=== PATIENT | female | born 1990 | race Caucasian/White ===

== ENCOUNTER 2017-04-30 15:58 | Emergency (ER) | payer MEDICAID ==
[2017-04-30 16:18] VITALS: BP 118/85
[2017-04-30] MEDS ORDERED: Sodium Chloride 0.9% 10 ML Syringe FLUSH PRN (17:06)
[2017-04-30] MEDS ORDERED: Sodium Chloride 0.9% 1,000 ML IV ONE (17:06)
[2017-04-30] MEDS ORDERED: diphenhydrAMINE 50 MG/ML SDV IVPUSH ONE (17:06)
[2017-04-30] MEDS ORDERED: Acetaminophen 650 MG Supp RECTAL ONE (17:06)
[2017-04-30] MEDS ORDERED: Ondansetron 4 MG/2 ML SDV IVPUSH ONE (17:06)
--- NOTE | 2017-04-30 17:12 | EDM.PDOC ---
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 States it is a possibility she may be . Last menstrual cycle was Mar 26. Patient's late. She is sexually active and is currently not utilizing control. All the symptoms she is currently experiencing are concerning for morning sickness. States this morning upon awakening she was nauseated and so started to vomit at approximate 9:00 after trying to eat something prior. Nausea/vomiting has persisted throughout the course the day. States the generalized headache started with vomiting. Headache is mild to moderate intensity. Generalized. She has no vision changes, no n/t to extremities, focal neurological deficits, recent head trauma, stiff neck, or fever. She does have history of migraines and states this is nothing like a migraine. Denies any recent sick exposures or upper respiratory infections. Patient has a history of ADHD and migraines Current medications include Adderall and sumatriptan. She has not taken any of these medications for short period of time. Patient does not smoke or utilize alcohol or recreational drugs. Patient's PCP is Dr. Dumont. 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 ED EXAM, GI/ABD - Physical Exam Exam: See Below Exam Limited By: No Limitations General Appearance: Alert, WD/WN, Mild Distress Eyes: Bilateral: Normal Appearance, EOMI Ears: Hearing Grossly Normal Nose: Normal Inspection Throat/Mouth: Normal Inspection, Normal Oropharynx, Normal Voice, No Airway Compromise Head: Atraumatic, Normocephalic Neck: Normal Inspection, Supple, Non-Tender, Full Range of Motion. No: Lymphadenopathy (L), Lymphadenopathy (R) Respiratory/Chest: No Respiratory Distress, Lungs Clear, Normal Breath Sounds, No Accessory Muscle Use, Chest Non-Tender Cardiovascular: Normal Peripheral Pulses, Regular Rate, Rhythm GI/Abdominal Exam: Normal Bowel Sounds, Soft, Non-Tender, No Organomegaly, No Distention Back Exam: Normal Inspection. No: CVA Tenderness (L), CVA Tenderness (R) Neurological: Alert, Oriented, Normal Cognition, No Motor/Sensory Deficits Psychiatric: Normal Affect, Normal Mood Skin Exam: Warm, Dry, Intact, Normal Color, No Rash Course - Vital Signs Last Recorded V/S: Last Vital Signs Temp 97.2 F 04/30/17 16:15 Pulse 78 04/30/17 16:15 Resp 20 04/30/17 16:15 BP 118/85 04/30/17 16:15 Pulse Ox 100 04/30/17 16:15 - Orders/Labs/Meds Orders: Active Orders 24 hr Category Date Time Status Peripheral IV Care [RC] . DIRECTED Care 04/30/17 17:06 Active Peripheral IV Insertion Adult [OM.PC] Stat Oth 04/30/17 17:06 Ordered Labs: Laboratory Tests 04/30/17 04/30/17 04/30/17 Range/Units 17:20 17:20 17:20 WBC 11.10 H (3.98-10.04) K/mm3 RBC 4.61 (3.98-5.22) M/mm3 Hgb 13.6 (11.2-15.7) gm/L Hct 39.2 (34.1-44.9) % MCV 85.0 (79.4-94.8) fl MCH 29.5 (25.6-32.2) pg MCHC 34.7 (32.2-35.5) g/dl RDW Std Deviation 39.0 (36.4-46.3) fL Plt Count 315 (182-369) K/mm3 MPV 10.1 (9.4-12.3) fl Neut % (Auto) 92.0 H (34.0-71.1) % Lymph % (Auto) 5.5 L (19.3-51.7) % [place] % (Auto) 1.9 L (4.7-12.5) % Eos % (Auto) 0.2 L (0.7-5.8) Baso % (Auto) 0.3 (0.1-1.2) % Neut # (Auto) 10.22 H (1.56-6.13) K/mm3 Lymph # (Auto) 0.61 L (1.18-3.74) K/mm3 [place] # (Auto) 0.21 L (0.24-0.36) K/mm3 Eos # (Auto) 0.02 L (0.04-0.36) K/mm3 Baso # (Auto) 0.03 (0.01-0.08) K/mm3 Manual Slide Review Abnormal smear Sodium 141 (136-145) mEq/L Potassium 3.7 (3.5-5.1) mEq/L Chloride 104 (98-107) mEq/L Carbon Dioxide 26 (21-32) mEq/L Anion Gap 14.7 (5-15) BUN 8 (7-18) mg/dL Creatinine 0.6 (0.55-1.02) mg/dL Est Cr Clr Drug Dosing 114.44 mL/min Estimated GFR (MDRD) > 60 (>60) mL/min BUN/Creatinine Ratio 13.3 L (14-18) Glucose 110 H (74-106) mg/dL Calcium 9.5 (8.5-10.1) mg/dL Total Bilirubin 0.9 (0.2-1.0) mg/dL AST 27 (15-37) U/L ALT 39 (14-59) U/L Alkaline Phosphatase 58 (46-116) U/L Total Protein 8.7 H (6.4-8.2) g/dl Albumin 4.7 (3.4-5.0) g/dl Globulin 4.0 gm/dL Albumin/Globulin Ratio 1.2 (1-2) TSH 3rd Generation 0.835 (0.358-3.74) uIU/mL HCG, Qual Positive H (NEGATIVE) HCG, Quant mIU/mL Blood Type 04/30/17 04/30/17 Range/Units 17:20 17:20 WBC (3.98-10.04) K/mm3 RBC (3.98-5.22) M/mm3 Hgb (11.2-15.7) gm/L Hct (34.1-44.9) % MCV (79.4-94.8) fl MCH (25.6-32.2) pg MCHC (32.2-35.5) g/dl RDW Std Deviation (36.4-46.3) fL Plt Count (182-369) K/mm3 MPV (9.4-12.3) fl Neut % (Auto) (34.0-71.1) % Lymph % (Auto) (19.3-51.7) % [place] % (Auto) (4.7-12.5) % Eos % (Auto) (0.7-5.8) Baso % (Auto) (0.1-1.2) % Neut # (Auto) (1.56-6.13) K/mm3 Lymph # (Auto) (1.18-3.74) K/mm3 [place] # (Auto) (0.24-0.36) K/mm3 Eos # (Auto) (0.04-0.36) K/mm3 Baso # (Auto) (0.01-0.08) K/mm3 Manual Slide Review Sodium (136-145) mEq/L Potassium (3.5-5.1) mEq/L Chloride (98-107) mEq/L Carbon Dioxide (21-32) mEq/L Anion Gap (5-15) BUN (7-18) mg/dL Creatinine (0.55-1.02) mg/dL Est Cr Clr Drug Dosing mL/min Estimated GFR (MDRD) (>60) mL/min BUN/Creatinine Ratio (14-18) Glucose (74-106) mg/dL Calcium (8.5-10.1) mg/dL Total Bilirubin (0.2-1.0) mg/dL AST (15-37) U/L ALT (14-59) U/L Alkaline Phosphatase (46-116) U/L Total Protein (6.4-8.2) g/dl Albumin (3.4-5.0) g/dl Globulin gm/dL Albumin/Globulin Ratio (1-2) TSH 3rd Generation (0.358-3.74) uIU/mL HCG, Qual (NEGATIVE) HCG, Quant 8.0 mIU/mL Blood Type A POSITIVE Meds: Medications Discontinued Medications Generic Name Dose Route Start Last Admin Trade Name Freq PRN Reason Stop Dose Admin Acetaminophen 650 mg 04/30/17 17:06 04/30/17 17:47 Tylenol RECTAL 04/30/17 17:07 650 mg NOW ONE Administration Diphenhydramine HCl 50 mg 04/30/17 17:06 04/30/17 17:42 Benadryl IVPUSH 04/30/17 17:07 50 mg ONETIME ONE Administration Sodium Chloride 1,000 mls @ 999 mls/hr 04/30/17 17:06 04/30/17 17:42 Normal Saline IV 04/30/17 18:06 999 mls/hr ONETIME ONE Administration Ondansetron HCl 4 mg 04/30/17 17:06 04/30/17 17:40 Zofran IVPUSH 04/30/17 17:07 4 mg ONETIME ONE Administration Sodium Chloride 10 ml 04/30/17 17:06 04/30/17 17:43 Saline Flush FLUSH 10 ml ASDIRECTED PRN Administration Keep Vein Open - Re-Assessments/Exams Free Text/Narrative Re-Assessment/Exam: IV will be established with normal saline, Zofran 4 mg IVP, and Benadryl 50 mg IVP. In addition for pain patient administered Tylenol 650 mg rectally. Initial labs and studies include CBC, chem 14, urine drug tox, hCG qualitative/ quanitatitve, abo/rh type, TSH, and UA. Labs reviewed: White blood cell count 11.10, hemoglobin 13.6, neutrophil percent is 92, neutrophil number is 10.2 to, sodium 141, potassium 3.7, AG 14.7 , creatinine 0.6, glucose 110, TSH 0.835, hCG was positive. Quantitative was 8.0. Shared results of the above labs with the patient. Offered to do perform a vaginal exam and evaluate to see if the cervical os is open. 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 In addition I asked the patient to inform us with tampon change how saturated was. Per nursing it was very saturated. Patient is A positive. Patient has no pain or nausea. Dizziness has subsided with the IV fluids. Vital signs are stable. Will discharge patient home with instructions as documented. Departure - Departure Time of Disposition: 20:04 Disposition: Home, Self-Care 01 Condition: Good Clinical Impression: Vaginal bleeding before 22 weeks gestation Nausea & vomiting Qualifiers: Vomiting type: unspecified Vomiting Intractability: non-intractable Qualified Code(s): R11.2 - Nausea with vomiting, unspecified - Discharge Information Prescriptions: Ondansetron [Zofran ODT] 4 mg PO Q6H PRN #10 tab.dis PRN Reason: Nausea/Vomiting Instructions: Nausea, Adult, Vaginal Bleeding During , First Trimester , Vaginal Bleeding During , Second Trimester, [id number] Referrals: Bonifacio Brunson MD [Primary Care Provider] - Forms: ED Department Discharge Additional Instructions: As discussed labs did indicate you are . Suggest you are early on in your with a hCG quantitative of 8. Take the Zofran as needed for nausea vomiting as prescribed. Push the fluids. Utilize Tylenol for any discomfort. Return to ED if he developed worsening bleeding or develop any pain. Otherwise follow-up with your [employer] SWEE[employer] OPERATOR specialist this coming Wednesday or Wednesday for reevaluation. - My Orders Last 24 Hours: My Active Orders 04/30/17 17:06 Peripheral IV Care [RC] . DIRECTED Peripheral IV Insertion Adult [OM.PC] Stat - Assessment/Plan Last 24 Hours: My Active Orders 04/30/17 17:06 Peripheral IV Care [RC] . DIRECTED Peripheral IV Insertion Adult [OM.PC] Stat
== END 2017-04-30 20:20 | disposition home or self-care (01) ==
LOC: JD.ED 15:58
DX: O20.9 Hemorrhage in early pregnancy, unspecified (principal); O21.9 Vomiting of pregnancy, unspecified; Z88.1 Allergy status to other antibiotic agents; Z88.2 Allergy status to sulfonamides
CPT/HCPCS: 36415; 80053; 84443; 84702; 84703; 85025; 86900; 86901; 96361; 96374; 96375; 99284; A9270; J1200; J2405; J7040; J7050

== ENCOUNTER 2017-08-31 21:24 | Emergency (ER) | payer MEDICAID ==
[2017-08-31 21:43] VITALS: BP 117/81
[2017-08-31] MEDS: Sodium Chloride 0.9% 1,000 ML IV ONE (22:53)
--- NOTE | 2017-08-31 22:54 | EDM.PDOC ---
ED HPI GENERAL MEDICAL PROBLEM - General Chief Complaint: Headache Stated Complaint: HEADACHE Time Seen by Provider: 08/31/17 22:28 Source of Information: Reports: Patient History Limitations: Reports: No Limitations - History of Present Illness INITIAL COMMENTS - FREE TEXT/NARRATIVE: The patient states that she has had a headache that involves the entire left side of her head, since this afternoon. It is constant. She is unable to describe its character. She has had nausea and slight emesis. She has both photophobia and phonophobia, but no visual changes. No neuro symptoms, such as tingling, numbness, or weakness. Her symptoms are similar to prior migraines that she has had. She has previously taken Imitrex for her migraines, but is currently 8 weeks gestation. She took 50 mg Benadryl around 16:00, without significant improvement. The last imaging study of the patient's head was on 08/12/2015, according to our records. The patient's PCP is Dr. Brunson. Headache Pain Score (Numeric/FACES): 10 - Related Data Allergies Allergy/AdvReac Type Severity Reaction Status Date / Time doxycycline Allergy Cannot Verified 08/31/17 21:43 Remember Sulfa (Sulfonamide Allergy Cannot Verified 08/31/17 21:43 Antibiotics) Remember Home Meds: Home Meds . 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: Neurological History: Reports: Migraines Psychiatric History: Reports: ADHD - Infectious Disease History Infectious Disease History: Reports: Chicken Pox - Past Surgical History Musculoskeletal Surgical History: Reports: Other (See Below) Other Musculoskeletal Surgeries/Procedures:: ankle surgery Social & Family History - Tobacco Use Smoking Status *Q: Never Smoker Second Hand Smoke Exposure: No - Caffeine Use Caffeine Use: Reports: None - Alcohol Use Alcohol Use History: No - Recreational Drug Use Recreational Drug Use: No - Living Situation & Occupation Living situation: Reports: Single, with Family (Daughter) 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 - Physical Exam Exam: See Below Exam Limited By: No Limitations General Appearance: Alert, WD/WN, Mild Distress (Appears uncomfortable) Eye Exam: Bilateral Eye: EOMI, Normal Inspection, PERRL Ears: Normal External Exam, Hearing Grossly Normal Nose: Normal Inspection, No Blood Throat/Mouth: Normal Inspection, Normal Lips, Normal Voice, No Airway Compromise Head Exam: Atraumatic, Normocephalic Neck: Normal Inspection, Full Range of Motion Respiratory/Chest: No Respiratory Distress, Lungs Clear, Normal Breath Sounds, No Accessory Muscle Use Cardiovascular: Normal Peripheral Pulses, Regular Rate, Rhythm, No Gallop, No JVD, No Murmur, No Rub GI/Abdominal: Normal Bowel Sounds, Soft, Non-Tender, No Organomegaly, No Distention, No Abnormal Bruit, No Mass (Female) Exam: Deferred Rectal (Female) Exam: Deferred Neuro Exam (Abbreviated): Alert, Oriented, CN II-XII Intact, Normal Cognition, No Motor/Sensory Deficits Back Exam: Normal Inspection, Full Range of Motion, NT Extremities: Normal Inspection, Normal Range of Motion, No Pedal Edema, Normal Capillary Refill Psychiatric: Normal Affect Skin Exam: Warm, Dry, Intact, Normal Color, No Rash Course - Vital Signs Last Recorded V/S: Last Vital Signs Temp 35.5 C 08/31/17 21:39 Pulse 84 08/31/17 21:39 Resp 16 08/31/17 21:39 BP 117/81 08/31/17 21:39 Pulse Ox 100 08/31/17 21:39 - Orders/Labs/Meds Meds: Medications Discontinued Medications Generic Name Dose Route Start Last Admin Trade Name Freq PRN Reason Stop Dose Admin Sodium Chloride 1,000 mls @ 999 mls/hr 08/31/17 22:41 08/31/17 22:53 Normal Saline IV 08/31/17 23:41 999 mls/hr ONETIME ONE Administration Metoclopramide HCl 10 mg 08/31/17 22:51 08/31/17 23:00 Reglan IVPUSH 08/31/17 22:52 10 mg ONETIME STA Administration Metoclopramide HCl 10 mg 08/31/17 23:31 08/31/17 23:43 Reglan IVPUSH 08/31/17 23:32 10 mg ONETIME STA Administration Ondansetron HCl 4 mg 08/31/17 22:41 08/31/17 22:55 Zofran IVPUSH 08/31/17 22:42 4 mg ONETIME ONE Administration - Re-Assessments/Exams Free Text/Narrative Re-Assessment/Exam: 08/31/17 22:56 As the patient is 8 weeks gestation, our treatment options are limited. Haldol and sumatriptan are category C. NSAIDs and Thorazine are not recommended while . Compazine is probably okay, but Reglan is category B. I have ordered IV fluid, IV Zofran, and 10 mg IV Reglan. She could receive a second dose of Reglan 10 mg, if needed. Because the last imaging study of her head was 2 years ago, current guidelines recommend a repeat CT scan. Radiology informs me that with shielding, the amount of radiation that she would receive to her abdomen would be less then that received from a portal chest radiograph. 08/31/17 23:32 The patient reports no improvement in her headache 30 minutes after receiving Reglan 10 mg. I have ordered an additional Reglan 10 mg. 09/01/17 00:30 CT of the head without contrast is read by [facility] as "Normal head/ brain CT." 09/01/17 00:31 The patient states that her headache has improved somewhat, and is now tolerable. I will discharge her home. Departure - Departure Time of Disposition: 00:31 Disposition: Home, Self-Care 01 Condition: Fair Clinical Impression: Migraine headache without aura, - Discharge Information Instructions: Migraine Headache, [id number] Referrals: Paige Kenny [Primary Care Provider] - Forms: ED Department Discharge Additional Instructions: You were seen in the emergency room for a left-sided migraine headache. Workup in the ER included a CT scan of her head, which was normal. You received some improvement in your symptoms following IV Reglan. Get plenty of rest tonight in a dark, quiet place. Stay well hydrated. Follow-up with your PCP, Dr. Brunson, and your Clinical Rehabilitation Liaison, Dr. Kenny, as needed. If any other problems, please do not hesitate to return to the ER.
[2017-08-31] MEDS: Ondansetron 4 MG/2 ML SDV IVPUSH ONE (22:55)
[2017-08-31] MEDS: Metoclopramide 10 MG/2 ML SDV IVPUSH STA ×2 (23:00→23:43)
--- NOTE | 2017-09-01 08:48 | CT ---
Head CT Technique: Multiple axial sections through the brain were obtained. Intravenous contrast was not utilized. Comparison: Prior head CT study of 08/12/15. Findings: Ventricles along with basal cisterns and sulci over the convexities are within normal limits for the patient's age. No abnormal parenchymal densities are seen. No evidence of intracranial hemorrhage. No midline shift or mass effect is seen. Visualized sinuses are clear. No acute calvarial abnormality is seen. Impression: 1. Nothing acute seen on noncontrast head CT study. No significant change is seen from previous study. Diagnostic code #1 Agree with preliminary report issued by [facility] ([facility] preliminary report dictated on 09/01/17, 1:17 AM Central Time)
== END 2017-09-01 01:00 | disposition home or self-care (01) ==
LOC: JD.ED 21:24
DX: O99.351 Diseases of the nervous system complicating pregnancy, first trimester (principal); G43.009 Migraine without aura, not intractable, without status migrainosus; Z88.1 Allergy status to other antibiotic agents; Z88.2 Allergy status to sulfonamides; Z3A.08 8 weeks gestation of pregnancy
CPT/HCPCS: 70450; 96361; 96374; 96375; 96376; 99284; J2405; J2765; J7040

== ENCOUNTER 2018-02-19 22:18 | Emergency (ER) | payer MEDICAID ==
[2018-02-19 22:45] VITALS: BP 124/93
--- NOTE | 2018-02-20 00:09 | EDM.PDOC ---
ED HPI GENERAL MEDICAL PROBLEM - General Chief Complaint: Neck Problem Stated Complaint: 33 WKS PG FELL AND HIT HEAD ON THE FLOOR Time Seen by Provider: 02/20/18 00:05 Source of Information: Reports: Patient History Limitations: Reports: No Limitations - History of Present Illness INITIAL COMMENTS - FREE TEXT/NARRATIVE: 27-year-old female who is 33 weeks gestation and do April 08 presents to the ED after slipping and falling after stepping out of the shower in her own home tonight. States her feet went out from underneath her and she fell hard to the floor banging the back of her head on the floor as well as her neck and upper back. She states she doesn't believe she lost consciousness but was confused and dazed for a period of time. She reports she started looking over all over the house for her phone when it was actually in her hand. She does have a headache at present with mild nausea. She states she banged her elbows on the floor but has no open lacerations and full range of motion. She was placed in a cervical collar by nursing staff prior to my assessment. Injuries occurred approximately 1815 hrs. today. Onset: Today Onset Date: 02/19/18 Onset Time: 18:15 Duration: Hour(s): Location: Reports: Head, Neck, Back, Upper Extremity, Left (Elbow), Upper Extremity, Right Quality: Reports: Ache Severity: Moderate Improves with: Reports: Rest Worsens with: Reports: Movement Context: Reports: Trauma (Slipped and fell getting out of the shower.). Denies : Activity, Exercise, Lifting, Sick Contact Associated Symptoms: Reports: Confusion, Headaches, Nausea/Vomiting. Denies: Chest Pain, Cough (Transient temporary confusion which seems to resolve.), cough w sputum, Diaphoresis (Mild headache), Fever/Chills, Loss of Appetite, Malaise, Rash, Seizure (Mild nausea), Shortness of Breath, Syncope Treatments CARDIAC TECHNICIAN: Reports: Acetaminophen Mid-Posterior Neck Pain Score (Numeric/FACES): 6 - Related Data Allergies Allergy/AdvReac Type Severity Reaction Status Date / Time doxycycline Allergy Cannot Verified 02/19/18 22:38 Remember Sulfa (Sulfonamide Allergy Cannot Verified 02/19/18 22:38 Antibiotics) Remember Home Meds: Home Meds . 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 She reports she required vaginal packing. Delivery was in [place].) LMP (Approximate): Other (See Below) (Current EDC is April 08, 2018) Neurological History: Reports: Migraines Psychiatric History: Reports: ADHD - Infectious Disease History Infectious Disease History: Reports: Chicken Pox - Past Surgical History Musculoskeletal Surgical History: Reports: Other (See Below) Other Musculoskeletal Surgeries/Procedures:: ankle surgery Social & Family History - Family History Family Medical History: Noncontributory - Tobacco Use Smoking Status *Q: Never Smoker Second Hand Smoke Exposure: No - Caffeine Use Caffeine Use: Reports: Soda - Recreational Drug Use Recreational Drug Use: No - Living Situation & Occupation Living situation: Reports: Single, with Family (Daughter) 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 Denies: Fever, Chills, Weight Loss HEENT: Reports: Other. Denies: Dental Pain, Ear Discharge, Ear Pain, Eye Discharge, Glasses, Hearing Loss, Nosebleed, Nose Pain, Rhinitis Respiratory: Reports: No Symptoms (Has problems chronically with her temporomandibular joints. They're perhaps a little worse and she fell) Cardiovascular: Reports: No Symptoms Endocrine: Reports: Fatigue GI/Abdominal: Denies: Abdominal Pain, Anorexia, Black Stool, Bloody Stool, Diarrhea, Decreased Appetite, Difficulty Swallowing, Distension, Flatus, Hematemesis, Hematochezia, Melena : Reports: Frequency, Other (Patient is 33 weeks gestation. EDC is April 08, 2018) Musculoskeletal: Reports: Back Pain Skin: Reports: No Symptoms Neurological: Reports: Confusion (Transient confusion after she fell suggesting possibility of mild concussion), Headache. Denies: Paresthesia, Pre-Existing Deficit, Seizure, Syncope, Tingling, Trouble Speaking, Difficulty Walking, Weakness, Change in Speech, Gait Disturbance Psychiatric: Reports: Anxiety Hematologic/Lymphatic: Reports: No Symptoms Immunologic: Reports: No Symptoms ED EXAM, UPPER BACK/NECK PAIN - Physical Exam Exam: See Below Exam Limited By: No Limitations General Appearance: Alert, WD/WN, Anxious, Mild Distress Eye Exam: Bilateral Eye: Normal Fundi, Normal Inspection, PERRL Throat/Mouth Exam: Normal Lips, Normal Teeth, Normal Oropharynx, Other (No dental or tongue injury.) Neck Exam: Normal Alignment, Normal Inspection, Other (Collar removed for examination and she had normal alignment of her cervical spine with no well localized tenderness. There is no paraspinal muscle spasm 5 hours after the injury.). No: Full Range of Motion Nexus Criteria: Posterior, Midline Cervical Tenderness ( Collar was left off.). No: Evidence of Intoxication, Altered Level of Consciousness, Focal Neurological Deficit (Very mild), Painful Distraction Injuries Cardiovascular/Respiratory: Regular Rate, Rhythm, No M/R/G, Normal Peripheral Pulses, No JVD, Normal Breath Sounds, No Respiratory Distress GI/Abdominal: Normal Bowel Sounds, Soft, Non-Tender, No Organomegaly, Other ( Gravid uterus corresponding to 33 weeks gestation. Good heart tones are appreciated.) Back Exam: Normal Inspection, Full Range of Motion, Other Extremities: Normal Inspection (She has some tenderness of the upper thoracic spine without contusions or abrasions identified on examination alignment of the spinous processes was normal.), Normal Range of Motion, Other (Tenderness both olecranon processes of the elbow without abrasions or obvious fracture or injury.) Neurologic: ball point splitter II-XII nml As Tested, No Motor/Sensory Deficits, Alert, Oriented x 3, Other Psychiatric: Flat Affect Skin Exam: Normal Color, Warm/Dry Course - Vital Signs Last Recorded V/S: Last Vital Signs Temp 37.6 C 02/19/18 22:38 Pulse 105 H 02/19/18 22:38 Resp 18 02/19/18 22:38 BP 124/93 H 02/19/18 22:38 Pulse Ox 98 02/19/18 22:38 - Orders/Labs/Meds Orders: Active Orders 24 hr Category Date Time Status Cervical Spine wo Cont [CT] Stat Exams 02/20/18 00:07 Ordered Chest 2V [CR] Stat Exams 02/20/18 00:08 Taken Head wo Cont [CT] Stat Exams 02/20/18 00:06 Taken Meds: Medications Discontinued Medications Generic Name Dose Route Start Last Admin Trade Name Freq PRN Reason Stop Dose Admin Acetaminophen 650 mg 02/20/18 01:23 02/20/18 01:29 Tylenol PO 02/20/18 01:24 650 mg NOW ONE Administration Ondansetron HCl 4 mg 02/20/18 01:23 02/20/18 01:30 Zofran Odt PO 02/20/18 01:24 4 mg ONETIME ONE Administration - Radiology Interpretation Free Text/Narrative:: 27-year-old female who is 33 weeks reports to the ED after slipping and falling getting out of her shower this evening. She states she slipped and feet went out from underneath her and she fell hard on the back of her head . Was dazed but did not lose consciousness. Since she's developed a headache with nausea without vomiting. She has diffuse cervical neck pain and some pain in her upper thoracic spine as well. Denies any rib pain. She banged her elbows on the floor and they're tender to touch over the olecranon processes but no signs of fractures with full range of motion. No injuries to the fetus-- good heart tones appreciated and uterus corresponds to a 33 week gestation. No injuries to her hips or knees or lower extremities. Back shows no signs of contusions or abrasions. Some tenderness over the upper thoracic spinous processes T1-T4. Plan CT head CT cervical spine 2 view chest x-ray with lead apron over the fetus. - Re-Assessments/Exams Free Text/Narrative Re-Assessment/Exam: 02/20/18 01:03 CT cervical spine is within normal limits although she is showing some early signs of anterior lipping at C5-6 and 7 level. No fractures are evident. Alignment is normal. CT head reveals no skull fractures no intracranial bleeding or mass effect. There is no significant hematoma of the scalp identified. Two-view chest x-ray carried out and ribs appear to be intact. Lungs are clear visualized portions of the thoracic spine do not show any compression fractures or deformities of the spinous processes. Patient reassured that no serious injuries have occurred although she is to expect increased cervical neck pain over the next 2 days due to cervical neck ligaments strain. Recommended have intermittent headache and by history she may well of suffered a mild concussion. She will be taking life easy for the next week at any rate with no vigorous exercise program etc. Given Zofran 4 mg sublingually and Tylenol 650 mg by mouth for headache and nausea relief. Will be following up with RN SECURITY next week. Departure - Departure Time of Disposition: 01:13 Disposition: Home, Self-Care 01 Condition: Fair Clinical Impression: Minor closed head injury Fall as cause of accidental injury at home as place of occurrence Qualifiers: Encounter type: initial encounter Qualified Code(s): W19.XXXA - Unspecified fall, initial encounter Sprain of cervical neck Qualifiers: Encounter type: initial encounter Qualified Code(s): S13.9XXA - Sprain of joints and ligaments of unspecified parts of neck, initial encounter Contusion of back wall of thorax Qualifiers: Encounter type: initial encounter Laterality: unspecified laterality Qualified Code(s): S20.229A - Contusion of unspecified back wall of thorax, initial encounter - Discharge Information *PRESCRIPTION DRUG MONITORING PROGRAM REVIEWED*: Not Applicable *COPY OF PRESCRIPTION DRUG MONITORING REPORT IN PATIENT LUCAS: Not Applicable Instructions: Cervical Sprain, Head Injury, Adult, [id number] Referrals: Nga Kenny MD [Primary Care Provider] - Forms: ED Department Discharge Additional Instructions: Evaluation the emergency room tonight in regards to a slip and fall at home after getting out of the shower last evening. He landed hard on the floor with the back of your head and subsequently suffered a headache with pain throughout your upper neck and upper back. She was identified to your shoulders or elbows or wrists or lower extremities. CT scan of your brain reveals no abnormalities such as bleeding or mass effect and certainly no evidence of skull fracture. Similarly CT of the cervical spine reveals no abnormalities or fractures. X- rays of the upper back bones and chest and ribs revealed no broken bones either. You therefore suffered a mild closed head injury with contusion to your scalp and possible mild concussion. Account for why you seemed to be confused disoriented for a period of time particular as to the whereabouts of your phone as you indicated. Expect her neck to become much more stiff and sore over the next 24-48 hours if he strained the ligaments in the upper neck muscles. Suggest ice pack to the area for one half hour out of every 4 hours for the first 2 days and after this may use heat to the area. May only use Tylenol during for pain relief. Similar he may have increased upper back pain from fall to the floor like it deep bruise. Expect to return back to normal over the next 7-10 days. Just no vigorous activities that would increase your blood pressure over the next week as an exercise program etc. Brain rest is important at this point time due to possibility of a mild concussion. Follow-up with your personal care physician/scratcher tender as planned. - My Orders Last 24 Hours: My Active Orders 02/20/18 00:06 Head wo Cont [CT] Stat 02/20/18 00:07 Cervical Spine wo Cont [CT] Stat 02/20/18 00:08 Chest 2V [CR] Stat - Assessment/Plan Last 24 Hours: My Active Orders 02/20/18 00:06 Head wo Cont [CT] Stat 02/20/18 00:07 Cervical Spine wo Cont [CT] Stat 02/20/18 00:08 Chest 2V [CR] Stat
[2018-02-20] MEDS ORDERED: Acetaminophen 325 MG Tab PO ONE (01:23)
[2018-02-20] MEDS ORDERED: Ondansetron 4 MG Tab.DIS PO ONE (01:23)
--- NOTE | 2018-02-22 13:16 | CR ---
Chest: 2 views of the chest were obtained. Comparison: No prior chest x-ray. Heart size appears at the upper limits of normal. Right-sided paratracheal soft tissues are slightly prominent. Lungs are clear. Bony structures are grossly intact. Impression: 1. Slight widening of the superior right paratracheal soft tissues. Heart size at the upper limits of normal. Recommend contrast enhanced chest CT to further evaluate the mediastinal findings. Diagnostic code #9
--- NOTE | 2018-02-23 06:52 | CT ---
CT cervical spine Technique: Multiple axial sections were obtained from above C1 inferiorly to the bottom of T2. Reconstructed sagittal and coronal images were reviewed. Findings: Mild disc space narrowing noted at C5-C6 with posterior spurring. Other disc spaces are maintained. Vertebral body heights are maintained. Kyphosis is present within the cervical spine. No discrete fracture or subluxation is seen. No bony central or bony neural foraminal stenosis is seen. Impression: 1. Kyphosis within the cervical spine either positional or due to muscle spasm. 2. Mild degenerative change at C5-C6. 3. Nothing acute is seen on CT study of the cervical spine. Diagnostic code #2 I agree with preliminary report from [facility], finalized at 02/20/18, 2:32 AM Central Time
--- NOTE | 2018-02-23 06:52 | CT ---
Head CT Technique: Multiple axial sections through the brain were obtained. Intravenous contrast was not utilized. Comparison: No prior intracranial imaging. Findings: Ventricles along with basal cisterns and sulci over the convexities are within normal limits for the patient's age. No abnormal parenchymal densities are seen. No evidence of intracranial hemorrhage. No midline shift or mass effect is seen. Bone window settings were reviewed which show no acute calvarial abnormality. Visualized sinuses are clear. Impression: 1. Nothing acute is seen on noncontrast head CT exam. Diagnostic code #1
== END 2018-02-20 01:35 | disposition home or self-care (01) ==
LOC: JD.ED 22:18
DX: O9A.213 Injury, poisoning and certain other consequences of external causes complicating pregnancy, third trimester (principal); S09.90XA Unspecified injury of head, initial encounter; S13.9XXA Sprain of joints and ligaments of unspecified parts of neck, initial encounter; S20.229A Contusion of unspecified back wall of thorax, initial encounter; Z88.2 Allergy status to sulfonamides; Z88.8 Allergy status to other drugs, medicaments and biological substances; W18.2XXA Fall in (into) shower or empty bathtub, initial encounter; Z3A.33 33 weeks gestation of pregnancy
CPT/HCPCS: 70450; 71046; 72125; 99284; A9270

== ENCOUNTER 2018-04-08 18:23 | Inpatient (IN) | payer MEDICAID ==
[2018-04-08] MEDS ORDERED: Sodium Chloride 0.9% 10 ML Syringe FLUSH PRN (19:33)
[2018-04-08] MEDS ORDERED: Nalbuphine 20 MG/ML 1 ML Syringe IVPUSH PRN (19:33)
[2018-04-08] MEDS ORDERED: Ondansetron 4 MG/2 ML SDV IVPUSH PRN (19:33)
--- NOTE | 2018-04-08 19:36 | PCM.LDHP ---
L&D History of Present Illness - General Date of Service: 04/08/18 Admit Problem/Dx: Patient Status Order with Admit Dx/Problem 04/08/18 19:33 Patient Status [ADT] Routine Admission Diagnosis/Problem Admission Diagnosis/Problem Normal labor Source of Information: Patient History Limitations: Reports: No Limitations - History of Present Illness Introduction:: Patient is a 27 y/o at 40 0/7 wks who presents for IOL. She is doing well today. No contractions. Good FM. - Related Data Allergies/Adverse Reactions: Allergies Allergy/AdvReac Type Severity Reaction Status Date / Time doxycycline Allergy Intermediate Anaphylactic Verified 04/08/18 21:57 Shock Sulfa (Sulfonamide Allergy Mild Hives Verified 04/08/18 21:57 Antibiotics) Home Medications: Home Meds . 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 Para: 1 LMP (Approximate): Other OB/BYN History: Hx of shoulder dystocia / cervical laceration with first delivery Neurological History: Reports: Migraines Psychiatric History: Reports: ADHD - Infectious Disease History Infectious Disease History: Reports: Chicken Pox - Past Surgical History Musculoskeletal Surgical History: Reports: Other (See Below) Other Musculoskeletal Surgeries/Procedures:: ankle surgery Social & Family History - Family History Family Medical History: Noncontributory - Tobacco Use Smoking Status *Q: Never Smoker - Caffeine Use Caffeine Use: Reports: Soda - Alcohol Use Alcohol Use History: No - Recreational Drug Use Recreational Drug Use: No - Living Situation & Occupation Living situation: Reports: Single, with Family (Daughter) 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) H&P Review of Systems - Review of Systems: Review Of Systems: See Below General: Reports: No Symptoms Pulmonary: Reports: No Symptoms Cardiovascular: Reports: No Symptoms Gastrointestinal: Reports: No Symptoms Genitourinary: Reports: No Symptoms Musculoskeletal: Reports: No Symptoms Psychiatric: Reports: No Symptoms Neurological: Reports: No Symptoms L&D Exam - Exam Exam: See Below - OB Specific Contraction Intensity: Irritability Movement: Active Heart Tones: Present Heart Tones per Min: 125 Heart Rate (FHR) Variability: Moderate (6-25 bmp) Presentation: Vertex - Shin Score Shin Score Cervix Position: Posterior Shin Score Consistency: Medium Shin Score Effacement: 31-50% Shin Score Dilation: 1-2 cm Shin Score 's Station: -2 Shin Score Total: 4 - Exam General: Alert, Oriented, Cooperative Lungs: Clear to Auscultation, Normal Respiratory Effort Cardiovascular: Regular Rate, Regular Rhythm GI/Abdominal Exam: Soft, Non-Tender Genitourinary: Normal external exam Extremities: Normal Inspection Skin: Warm, Dry, Intact - Patient Data Result Diagrams: 04/08/18 19:45 - Problem List (1) 40 weeks gestation of SNOMED Code(s): 77757053 ICD Code: Z3A.40 - 40 WEEKS GESTATION OF Status: Acute Current Visit: Yes (2) History of shoulder dystocia in prior SNOMED Code(s): 596357084 ICD Code: Z87.59 - PERSONAL HISTORY OF COMP OF PREG, CHLDBRTH AND THE PUERP Status: Acute Current Visit: Yes (3) History of maternal cervical laceration, currently SNOMED Code(s): 521549616 ICD Code: O09.299 - SUPRVSN OF PREG W POOR REPRODCTV OR OBSTET HISTORY, UNSP TRI Status: Acute Current Visit: Yes Problem List Initiated/Reviewed/Updated: Yes Orders Last 24hrs: Active Orders 24 hr Category Date Time Status Patient Status [ADT] Routine ADT 04/08/18 19:33 Ordered Activity as Tolerated [RC] PFP Care 04/08/18 19:33 Ordered Communication Order [RC] ASDIRECTED Care 04/08/18 19:33 Ordered Communication Order [RC] ASDIRECTED Care 04/08/18 19:33 Ordered Communication Order [RC] ASDIRECTED Care 04/08/18 19:33 Ordered Monitoring [RC] INTERMITTENT Care 04/08/18 19:33 Ordered Non Stress Test [RC] PER UNIT ROUTINE Care 04/08/18 19:33 Ordered Notify Provider [RC] ASDIRECTED Care 04/08/18 19:33 Ordered Notify Provider [RC] PRN Care 04/08/18 19:33 Ordered Peripheral IV Care [RC] . DIRECTED Care 04/08/18 19:34 Ordered Up ad Glenna [RC] ASDIRECTED Care 04/08/18 19:34 Ordered Vaginal Exam [RC] ASDIRECTED Care 04/08/18 19:33 Ordered Vital Signs [RC] ASDIRECTED Care 04/08/18 19:33 Ordered Vital Signs [RC] PER UNIT ROUTINE Care 04/08/18 19:33 Ordered Regular Diet [DIET] Diet 04/08/18 Dinner Ordered CBC W/O DIFF,HEMOGRAM [HEME] Routine Lab 04/08/18 19:33 Ordered RAPID PLASMA REAGIN,RPR [CHEM] Routine Lab 04/08/18 19:33 Ordered TYPE AND SCREEN [BBK] Routine Lab 04/08/18 19:33 Ordered Lactated Ringers [Ringers, Lactated] 1,000 ml Med 04/08/18 19:45 Ordered IV ASDIRECTED Nalbuphine [Nubain] Med 04/08/18 19:33 Ordered 10 mg IVPUSH Q2H PRN Ondansetron [Zofran] Med 04/08/18 19:33 Ordered 4 mg IVPUSH Q4H PRN Oxytocin/Lactated Ringers [Pitocin in LR 10 Units/1,000 Med 04/08/18 19:45 Ordered ML] 10 unit in 1,000 ml IV .CONTINUOUS Oxytocin/Lactated Ringers [Pitocin in LR 10 Units/1,000 Med 04/08/18 19:45 Ordered ML] 10 unit in 1,000 ml IV TITRATE Sodium Chloride 0.9% [Saline Flush] Med 04/08/18 19:33 Ordered 10 ml FLUSH ASDIRECTED PRN Peripheral IV Insertion Adult [OM.PC] Routine Oth 04/08/18 19:33 Ordered Resuscitation Status Routine Resus Stat 04/08/18 19:33 Ordered Assessment/Plan Comment:: 27 y/o at 40 0/7 wks presents for IOL * Labs * GBS negative, no need for antibiotics * Plan pitocin for IOL with AROM when needed * Pain management per patient preference * Patient again reminded of recurrence risk with prior shoulder dystocia, still desires to go forward
[2018-04-08] MEDS ORDERED: Oxytocin/Lactated Ringers 10 UNIT/1,000 ML BAG IV SCH (19:45)
[2018-04-08] MEDS: Lactated Ringers 1,000 ML IV SCH (20:29)
[2018-04-08] MEDS: Oxytocin/Lactated Ringers 10 UNIT/1,000 ML BAG IV SCH (20:29)
[2018-04-09] MEDS ORDERED: Bupivacaine 0.25% 10 ML SDV ONE (03:00)
--- NOTE | 2018-04-09 04:16 | PCM.PNLD ---
Labor Progress Note - VS & Meds Vital Signs: Last Vital Signs Temp 37.1 C 04/08/18 19:33 Pulse 97 04/08/18 19:33 Resp 16 04/08/18 19:33 BP 126/86 04/08/18 19:33 Pulse Ox 98 04/08/18 19:33 Active Medications: Current Medications Lactated Ringer's (Ringers, Lactated) 1,000 mls @ 40 mls/hr IV ASDIRECTED DEO Last Admin: 04/08/18 20:29 Dose: 40 mls/hr Oxytocin/Lactated Ringer's (Pitocin In Lr 10 Units/1,000 Ml) 10 unit in 1,000 mls @ 12 mls/hr IV TITRATE DEO; Protocol Last Titration: 04/09/18 02:00 Dose: 16 munits/min, 96 mls/hr Oxytocin/Lactated Ringer's (Pitocin In Lr 10 Units/1,000 Ml) 10 unit in 1,000 mls @ 500 mls/hr IV .CONTINUOUS DEO Nalbuphine HCl (Nubain) 10 mg IVPUSH Q2H PRN PRN Reason: pain Ondansetron HCl (Zofran) 4 mg IVPUSH Q4H PRN PRN Reason: Nausea/Vomiting Sodium Chloride (Saline Flush) 10 ml FLUSH ASDIRECTED PRN PRN Reason: Keep Vein Open - Uterine Contractions Uterine Monitoring Mode: External [place] Contraction Intensity: Mild to Moderate - Monitoring Monitor Mode: External Ultrasound Heart Rate (FHR) Baseline: 125 Heart Rate (FHR) Variability: Moderate (6-25 bmp) Accelerations: Present, 10x10 (=/<32 wks) Decelerations: None Strip Review: Category I - Vaginal Exam Dilation (cm): 3 Effacement (Percent): 50 Station: -2 Cervical Position: Posterior - Labor Progress (Free Text) Labor Progress: Doing well. Pitocin at 18. Agreeable to AROM after discussion. Done with release of large amount of clear fluid
[2018-04-09] MEDS ORDERED: fentaNYL 100 MCG/2 ML SDV EPIDUR PRN (08:19)
[2018-04-09] MEDS ORDERED: ePHEDrine 50 MG/ML SDV IVPUSH PRN (08:19)
[2018-04-09] MEDS ORDERED: Ondansetron 4 MG/2 ML SDV IVPUSH PRN (08:19)
[2018-04-09] MEDS: Bupivacaine/fentaNYL/NS 100 ML Bag EPIDUR SCH ×2 (09:02→16:05)
[2018-04-09] MEDS: Oxytocin/Lactated Ringers 10 UNIT/1,000 ML BAG IV SCH (09:17)
[2018-04-09] MEDS: Lactated Ringers 1,000 ML IV SCH ×2 (09:18→10:32)
[2018-04-09] MEDS: diphenhydrAMINE 50 MG/ML SDV IVPUSH PRN ×2 (09:39→15:56)
--- NOTE | 2018-04-09 14:07 | PCM.PNLD ---
Labor Progress Note - VS & Meds Vital Signs: Last Vital Signs Temp 37.1 C 04/08/18 19:33 Pulse 97 04/08/18 19:33 Resp 16 04/08/18 19:33 BP 126/86 04/08/18 19:33 Pulse Ox 98 04/08/18 19:33 Active Medications: Current Medications Diphenhydramine HCl (Benadryl) 25 mg IVPUSH Q6H PRN PRN Reason: Pruritis Last Admin: 04/09/18 09:39 Dose: 25 mg Ephedrine Sulfate (Ephedrine Sulfate) 5 mg IVPUSH ASDIRECTED PRN PRN Reason: Hypotension Last Admin: 04/09/18 11:36 Dose: 5 mg Fentanyl (Sublimaze) 100 mcg EPIDUR Q3H PRN PRN Reason: Pain Last Admin: 04/09/18 09:02 Dose: 100 mcg Fentanyl/Bupivacaine HCl (Fentanyl/Bupivacaine/Ns 2 Mcg-0.125% 100 Ml) 100 ml EPIDUR ASDIRECTED DEO Last Admin: 04/09/18 09:02 Dose: 100 ml Lactated Ringer's (Ringers, Lactated) 1,000 mls @ 40 mls/hr IV ASDIRECTED DEO Last Admin: 04/09/18 10:32 Dose: 40 mls/hr Oxytocin/Lactated Ringer's (Pitocin In Lr 10 Units/1,000 Ml) 10 unit in 1,000 mls @ 12 mls/hr IV TITRATE DEO; Protocol Last Titration: 04/09/18 13:08 Dose: 18 munits/min, 108 mls/hr Oxytocin/Lactated Ringer's (Pitocin In Lr 10 Units/1,000 Ml) 10 unit in 1,000 mls @ 500 mls/hr IV .CONTINUOUS DEO Nalbuphine HCl (Nubain) 10 mg IVPUSH Q2H PRN PRN Reason: pain Ondansetron HCl (Zofran) 4 mg IVPUSH Q4H PRN PRN Reason: Nausea/Vomiting Ondansetron HCl (Zofran) 4 mg IVPUSH ONETIME PRN PRN Reason: Nausea/Vomiting Sodium Chloride (Saline Flush) 10 ml FLUSH ASDIRECTED PRN PRN Reason: Keep Vein Open - Uterine Contractions Uterine Monitoring Mode: External [place] Contraction Intensity: Irritability - Monitoring Monitor Mode: External Ultrasound Heart Rate (FHR) Baseline: 135 Heart Rate (FHR) Variability: Moderate (6-25 bmp) Accelerations: Present, 10x10 (=/<32 wks) Decelerations: Variable Strip Review: Category II - Vaginal Exam Dilation (cm): 7 Effacement (Percent): 90 Station: -1 Cervical Position: Midposition - Labor Progress (Free Text) Labor Progress: Doing well. Comfortable with epidural. Pitocin at 18. Continue present management
[2018-04-09] MEDS ORDERED: Ampicillin 2 GM in Sodium Chloride 0.9% 100 ML IV ONE (16:48)
[2018-04-09] MEDS ORDERED: Acetaminophen 325 MG Tab PO ONE (16:50)
--- NOTE | 2018-04-09 17:05 | PCM.PNLD ---
Labor Progress Note - VS & Meds Vital Signs: Last Vital Signs Temp 38.2 C H 04/09/18 16:56 Pulse 97 04/08/18 19:33 Resp 16 04/08/18 19:33 BP 126/86 04/08/18 19:33 Pulse Ox 98 04/08/18 19:33 Active Medications: Current Medications Diphenhydramine HCl (Benadryl) 25 mg IVPUSH Q6H PRN PRN Reason: Pruritis Last Admin: 04/09/18 15:56 Dose: 25 mg Ephedrine Sulfate (Ephedrine Sulfate) 5 mg IVPUSH ASDIRECTED PRN PRN Reason: Hypotension Last Admin: 04/09/18 11:36 Dose: 5 mg Fentanyl (Sublimaze) 100 mcg EPIDUR Q3H PRN PRN Reason: Pain Last Admin: 04/09/18 09:02 Dose: 100 mcg Fentanyl/Bupivacaine HCl (Fentanyl/Bupivacaine/Ns 2 Mcg-0.125% 100 Ml) 100 ml EPIDUR ASDIRECTED DEO Last Admin: 04/09/18 16:05 Dose: 100 ml Lactated Ringer's (Ringers, Lactated) 1,000 mls @ 40 mls/hr IV ASDIRECTED DEO Last Admin: 04/09/18 10:32 Dose: 40 mls/hr Oxytocin/Lactated Ringer's (Pitocin In Lr 10 Units/1,000 Ml) 10 unit in 1,000 mls @ 12 mls/hr IV TITRATE DEO; Protocol Last Titration: 04/09/18 13:08 Dose: 18 munits/min, 108 mls/hr Oxytocin/Lactated Ringer's (Pitocin In Lr 10 Units/1,000 Ml) 10 unit in 1,000 mls @ 500 mls/hr IV .CONTINUOUS DEO Ampicillin Sodium 2 gm/ Sodium (Chloride) 100 mls @ 200 mls/hr IV ONETIME ONE Stop: 04/09/18 17:17 Last Admin: 04/09/18 16:57 Dose: 200 mls/hr Gentamicin Sulfate 150 mg/ (Sodium Chloride) 103.75 mls @ 200 mls/hr IV ONETIME ONE Stop: 04/09/18 17:20 Nalbuphine HCl (Nubain) 10 mg IVPUSH Q2H PRN PRN Reason: pain Ondansetron HCl (Zofran) 4 mg IVPUSH Q4H PRN PRN Reason: Nausea/Vomiting Ondansetron HCl (Zofran) 4 mg IVPUSH ONETIME PRN PRN Reason: Nausea/Vomiting Sodium Chloride (Saline Flush) 10 ml FLUSH ASDIRECTED PRN PRN Reason: Keep Vein Open Discontinued Medications Acetaminophen (Tylenol) 975 mg PO NOW ONE Stop: 04/09/18 16:51 Last Admin: 04/09/18 16:56 Dose: 975 mg - Uterine Contractions Uterine Monitoring Mode: External Secretary Contraction Intensity: Moderate to Strong - Monitoring Monitor Mode: External Ultrasound Heart Rate (FHR) Baseline: 160 Heart Rate (FHR) Variability: Moderate (6-25 bmp) Accelerations: Present, 10x10 (=/<32 wks) Decelerations: None, Variable Strip Review: Category I - Vaginal Exam Dilation (cm): 9 Effacement (Percent): 90 Station: 0 Cervical Position: Midposition - Labor Progress (Free Text) Labor Progress: Patient has had slow progress since found to be 7 cm. Now also with temperature of 100.7 temporal. Will given 975 mg of tylenol and start IV amp/ gent for chorioamnionitis. Now 9 cm and so position changed again. Will check again in 1 hour.
--- NOTE | 2018-04-09 18:06 | PCM.PREANE ---
Preanesthetic Assessment - Procedure Proposed Procedure: KATY - Anesthesia/Transfusion/Family Hx Anesthesia History: Prior Anesthesia Without Reaction Family History of Anesthesia Reaction: No Transfusion History: Prior Transfusion Without Reaction (with last delivery) - Review of Systems General: No Symptoms Pulmonary: No Symptoms Cardiovascular: No Symptoms Gastrointestinal: Other (GERD with ) Neurological: Headache (Migraines ) Other: Reports: None - Physical Assessment NPO Status Date: 04/09/18 NPO Status Time: 07:00 O2 Sat by Pulse Oximetry: 98 Respiratory Rate: 16 Temperature: 38.2 C Vital Signs: Last Vital Signs Temp 38.2 C H 04/09/18 16:56 Pulse 97 04/08/18 19:33 Resp 16 04/08/18 19:33 BP 126/86 04/08/18 19:33 Pulse Ox 98 04/08/18 19:33 Height: 1.6 m Weight: 77.927 kg ASA Class: 2 Mental Status: Alert & Oriented x3 Airway Class: Mallampati = 2 Dentition: Reports: Normal Dentition Thyro-Mental Finger Breadths: 3 Mouth Opening Finger Breadths: 3 ROM/Head Extension: Full Lungs: Clear to Auscultation, Normal Respiratory Effort Cardiovascular: Regular Rate, Regular Rhythm - Lab Values: Laboratory Last Values WBC 7.87 K/mm3 (3.98-10.04) 04/08/18 19:45 RBC 3.66 M/mm3 (3.98-5.22) L 04/08/18 19:45 Hgb 10.7 gm/L (11.2-15.7) L 04/08/18 19:45 Hct 31.2 % (34.1-44.9) L 04/08/18 19:45 MCV 85.2 fl (79.4-94.8) 04/08/18 19:45 MCH 29.2 pg (25.6-32.2) 04/08/18 19:45 MCHC 34.3 g/dl (32.2-35.5) 04/08/18 19:45 RDW Std Deviation 39.2 fL (36.4-46.3) 04/08/18 19:45 Plt Count 284 K/mm3 (182-369) 04/08/18 19:45 MPV 9.6 fl (9.4-12.3) 04/08/18 19:45 Blood Type A POSITIVE 04/08/18 19:45 Gel Antibody Screen Negative 04/08/18 19:45 - Allergies Allergies/Adverse Reactions: Allergies Allergy/AdvReac Type Severity Reaction Status Date / Time doxycycline Allergy Intermediate Anaphylactic Verified 04/08/18 21:57 Shock Sulfa (Sulfonamide Allergy Mild Hives Verified 04/08/18 21:57 Antibiotics) - Blood Blood Available: No Product(s) Available: None - Anesthesia Plan Pre-Op Medication Ordered: None - Acknowledgements Anesthesia Type Planned: Epidural Pt an Appropriate Candidate for the Planned Anesthesia: Yes Alternatives and Risks of Anesthesia Discussed w Pt/Guardian: Yes Pt/Guardian Understands and Agrees with Anesthesia Plan: Yes PreAnesthesia Questionnaire - Past Health History Medical/Surgical History: Denies Medical/Surgical History HEENT History: Reports: Other (See Below) Other HEENT History: Migraines BODY SPECIALIST History: Reports: Other OB/BYN History: Hx of shoulder dystocia / cervical laceration with first delivery Neurological History: Reports: Migraines Psychiatric History: Reports: ADHD - Infectious Disease History Infectious Disease History: Reports: Chicken Pox - Past Surgical History Musculoskeletal Surgical History: Reports: Other (See Below) Other Musculoskeletal Surgeries/Procedures:: ankle surgery - SUBSTANCE USE Smoking Status *Q: Never Smoker Second Hand Smoke Exposure: No Recreational Drug Use History: No - HOME MEDS Home Medications: Home Meds . [No Known Home Meds] 08/31/17 [History] - CURRENT (IN HOUSE) MEDS Current Meds: Current Medications Diphenhydramine HCl (Benadryl) 25 mg IVPUSH Q6H PRN PRN Reason: Pruritis Last Admin: 04/09/18 15:56 Dose: 25 mg Ephedrine Sulfate (Ephedrine Sulfate) 5 mg IVPUSH ASDIRECTED PRN PRN Reason: Hypotension Last Admin: 04/09/18 11:36 Dose: 5 mg Fentanyl (Sublimaze) 100 mcg EPIDUR Q3H PRN PRN Reason: Pain Last Admin: 04/09/18 09:02 Dose: 100 mcg Fentanyl/Bupivacaine HCl (Fentanyl/Bupivacaine/Ns 2 Mcg-0.125% 100 Ml) 100 ml EPIDUR ASDIRECTED DEO Last Admin: 04/09/18 16:05 Dose: 100 ml Lactated Ringer's (Ringers, Lactated) 1,000 mls @ 40 mls/hr IV ASDIRECTED DEO Last Admin: 04/09/18 10:32 Dose: 40 mls/hr Oxytocin/Lactated Ringer's (Pitocin In Lr 10 Units/1,000 Ml) 10 unit in 1,000 mls @ 12 mls/hr IV TITRATE DEO; Protocol Last Titration: 04/09/18 13:08 Dose: 18 munits/min, 108 mls/hr Oxytocin/Lactated Ringer's (Pitocin In Lr 10 Units/1,000 Ml) 10 unit in 1,000 mls @ 500 mls/hr IV .CONTINUOUS DEO Nalbuphine HCl (Nubain) 10 mg IVPUSH Q2H PRN PRN Reason: pain Ondansetron HCl (Zofran) 4 mg IVPUSH Q4H PRN PRN Reason: Nausea/Vomiting Ondansetron HCl (Zofran) 4 mg IVPUSH ONETIME PRN PRN Reason: Nausea/Vomiting Sodium Chloride (Saline Flush) 10 ml FLUSH ASDIRECTED PRN PRN Reason: Keep Vein Open Discontinued Medications Acetaminophen (Tylenol) 975 mg PO NOW ONE Stop: 04/09/18 16:51 Last Admin: 04/09/18 16:56 Dose: 975 mg Ampicillin Sodium 2 gm/ Sodium (Chloride) 100 mls @ 200 mls/hr IV ONETIME ONE Stop: 04/09/18 17:17 Last Admin: 04/09/18 16:57 Dose: 200 mls/hr Gentamicin Sulfate 150 mg/ (Sodium Chloride) 103.75 mls @ 200 mls/hr IV ONETIME ONE Stop: 04/09/18 17:20 Last Admin: 04/09/18 17:36 Dose: 200 mls/hr
[2018-04-09] MEDS ORDERED: Misoprostol 200 MCG Tab ONE (18:30)
[2018-04-09] MEDS ORDERED: Misoprostol 200 MCG Tab PO STA (18:35)
--- NOTE | 2018-04-09 18:51 | PCM.DEL ---
L & D Note - General Info Date of Service: 04/09/18 - Delivery Note Labor: Induced by ARM, Induced by Oxytocin Delivery Outcome: Livebirth Infant Delivery Method: Spontaneous Vaginal Delivery-Single Infant Delivery Mode: Spontaneous Presentation: Left Occiput Anterior (RAJI) Nuchal Cord: Present (tight so not reduced) Anesthesia Type: Epidural Amniotic Fluid Description: Clear Episiotomy Type: None Laceration: None Placenta: Intact, Spontaneous Cord: 3 Vessels Estimated Blood Loss: 300 Resuscitation Needed: Yes [place]: Bulb Syringe, Stimulated, Warmed, [place] Used, Warmer Used Score 1 min: 6 Score 5 min: 8 Delivery Comments (Free Text/Narrative):: Patient found to be complete and began pushing. With maternal pushing effort head delivered from an RAJI presentation. Nuchal cord present, but tight so not reduced. With gentle downward traction the shoulder and body delivered. placed on maternal abdomen. Cord clamped and cut. Cord blood obtained. Placenta allowed time to separate and expelled intact. Inspection of the perineum showed no lacerations. Given history of PPH she was given 600 mcg dose of buccal cytotec. - General Info Date of Service: 04/09/18 - Patient Data Vitals - Most Recent: Last Vital Signs Temp 38.2 C H 04/09/18 18:06 Pulse 97 04/08/18 19:33 Resp 16 04/09/18 18:06 BP 126/86 04/08/18 19:33 Pulse Ox 98 04/09/18 18:06 Weight - Most Recent: 77.927 kg Lab Results Last 24 Hours: Laboratory Results - last 24 hr 04/08/18 04/08/18 Range/Units 19:45 19:45 WBC 7.87 (3.98-10.04) K/mm3 RBC 3.66 L (3.98-5.22) M/mm3 Hgb 10.7 L (11.2-15.7) gm/L Hct 31.2 L (34.1-44.9) % MCV 85.2 (79.4-94.8) fl MCH 29.2 (25.6-32.2) pg MCHC 34.3 (32.2-35.5) g/dl RDW Std Deviation 39.2 (36.4-46.3) fL Plt Count 284 (182-369) K/mm3 MPV 9.6 (9.4-12.3) fl Blood Type A POSITIVE Gel Antibody Screen Negative Med Orders - Current: Current Medications Diphenhydramine HCl (Benadryl) 25 mg IVPUSH Q6H PRN PRN Reason: Pruritis Last Admin: 04/09/18 15:56 Dose: 25 mg Ephedrine Sulfate (Ephedrine Sulfate) 5 mg IVPUSH ASDIRECTED PRN PRN Reason: Hypotension Last Admin: 04/09/18 11:36 Dose: 5 mg Fentanyl (Sublimaze) 100 mcg EPIDUR Q3H PRN PRN Reason: Pain Last Admin: 04/09/18 09:02 Dose: 100 mcg Fentanyl/Bupivacaine HCl (Fentanyl/Bupivacaine/Ns 2 Mcg-0.125% 100 Ml) 100 ml EPIDUR ASDIRECTED DEO Last Admin: 04/09/18 16:05 Dose: 100 ml Lactated Ringer's (Ringers, Lactated) 1,000 mls @ 40 mls/hr IV ASDIRECTED DEO Last Admin: 04/09/18 10:32 Dose: 40 mls/hr Oxytocin/Lactated Ringer's (Pitocin In Lr 10 Units/1,000 Ml) 10 unit in 1,000 mls @ 12 mls/hr IV TITRATE DEO; Protocol Last Titration: 04/09/18 13:08 Dose: 18 munits/min, 108 mls/hr Oxytocin/Lactated Ringer's (Pitocin In Lr 10 Units/1,000 Ml) 10 unit in 1,000 mls @ 500 mls/hr IV .CONTINUOUS DEO Last Admin: 04/09/18 18:39 Dose: 500 mls/hr Nalbuphine HCl (Nubain) 10 mg IVPUSH Q2H PRN PRN Reason: pain Ondansetron HCl (Zofran) 4 mg IVPUSH Q4H PRN PRN Reason: Nausea/Vomiting Ondansetron HCl (Zofran) 4 mg IVPUSH ONETIME PRN PRN Reason: Nausea/Vomiting Sodium Chloride (Saline Flush) 10 ml FLUSH ASDIRECTED PRN PRN Reason: Keep Vein Open Discontinued Medications Acetaminophen (Tylenol) 975 mg PO NOW ONE Stop: 04/09/18 16:51 Last Admin: 04/09/18 16:56 Dose: 975 mg Ampicillin Sodium 2 gm/ Sodium (Chloride) 100 mls @ 200 mls/hr IV ONETIME ONE Stop: 04/09/18 17:17 Last Admin: 04/09/18 16:57 Dose: 200 mls/hr Gentamicin Sulfate 150 mg/ (Sodium Chloride) 103.75 mls @ 200 mls/hr IV ONETIME ONE Stop: 04/09/18 17:20 Last Admin: 04/09/18 17:36 Dose: 200 mls/hr Misoprostol (Cytotec) Confirm Administered Dose 600 mcg .ROUTE .STK-MED ONE Stop: 04/09/18 18:31 Last Admin: 04/09/18 18:38 Dose: 600 mcg Misoprostol (Cytotec) 600 mcg PO ONETIME STA Stop: 04/09/18 18:36 - Problem List & Annotations (1) 40 weeks gestation of SNOMED Code(s): 47501582 Code(s): Z3A.40 - 40 WEEKS GESTATION OF Status: Acute Current Visit: Yes (2) History of shoulder dystocia in prior SNOMED Code(s): 635860846 Code(s): Z87.59 - PERSONAL HISTORY OF COMP OF PREG, CHLDBRTH AND THE PUERP Status: Acute Current Visit: Yes (3) History of maternal cervical laceration, currently SNOMED Code(s): 537789310 Code(s): O09.299 - SUPRVSN OF PREG W POOR REPRODCTV OR OBSTET HISTORY, UNSP TRI Status: Acute Current Visit: Yes (4) Chorioamnionitis SNOMED Code(s): 88252732 Code(s): O41.1290 - CHORIOAMNIONITIS, UNSP TRIMESTER, NOT APPLICABLE OR UNSP Status: Acute Current Visit: Yes Qualifiers: Fetus number: single or unspecified fetus Trimester: third trimester Qualified Code(s): O41.1230 - Chorioamnionitis, third trimester, not applicable or unspecified (5) Vaginal delivery SNOMED Code(s): 833073766 Code(s): O80 - ENCOUNTER FOR FULL-TERM UNCOMPLICATED DELIVERY Status: Acute Current Visit: Yes - Problem List Review Problem List Initiated/Reviewed/Updated: Yes - My Orders Last 24 Hours: My Active Orders 04/08/18 19:33 Patient Status [ADT] Routine Activity as Tolerated [RC] PFP Communication Order [RC] ASDIRECTED Communication Order [RC] ASDIRECTED Communication Order [RC] ASDIRECTED Notify Provider [RC] ASDIRECTED Notify Provider [RC] PRN Vital Signs [RC] PER UNIT ROUTINE Nalbuphine [Nubain] 10 mg IVPUSH Q2H PRN Ondansetron [Zofran] 4 mg IVPUSH Q4H PRN Sodium Chloride 0.9% [Saline Flush] 10 ml FLUSH ASDIRECTED PRN Peripheral IV Insertion Adult [OM.PC] Routine Resuscitation Status Routine 04/08/18 19:34 Peripheral IV Care [RC] . DIRECTED Up ad [place] [RC] ASDIRECTED 04/08/18 19:45 RAPID PLASMA REAGIN,RPR [CHEM] Routine Lactated Ringers [Ringers, Lactated] 1,000 ml IV ASDIRECTED Oxytocin/Lactated Ringers [Pitocin in LR 10 Units/1,000 ML] 10 unit in 1,000 ml IV .CONTINUOUS Oxytocin/Lactated Ringers [Pitocin in LR 10 Units/1,000 ML] 10 unit in 1,000 ml IV TITRATE - Assessment Assessment:: 27 y/o G3 now P2012 PPD#0 from at 40 1/7 wks - Plan Plan:: * S/p Amp/Gent. Will monitor closely afterwards * Encourage breast feeding * Discharge home in 1-2 days
[2018-04-09] MEDS ORDERED: Lanolin 100% Cream 7 GM Tube TOP PRN (20:11)
[2018-04-09] MEDS ORDERED: Acetaminophen 325 MG Tab PO PRN (20:11)
[2018-04-09] MEDS ORDERED: Witch Hazel Medicated Pads 100/Jar TOP PRN (20:11)
[2018-04-09] MEDS ORDERED: Benzocaine/Menthol 20%-0.5% Spray 56 GM Canister TOP PRN (20:11)
[2018-04-09] MEDS ORDERED: Lactated Ringers 0 ML ONE (20:21)
[2018-04-09] MEDS ORDERED: Ondansetron 4 MG/2 ML SDV ONE (21:39)
[2018-04-09] MEDS: Ibuprofen 600 MG Tab PO PRN (21:57)
--- NOTE | 2018-04-10 03:53 | PCM.PNPP ---
- General Info Date of Service: 04/10/18 Functional Status: Reports: Pain Controlled, Tolerating Diet, Ambulating, Urinating - Review of Systems General: Reports: No Symptoms Pulmonary: Reports: No Symptoms Cardiovascular: Reports: No Symptoms Gastrointestinal: Reports: No Symptoms Genitourinary: Reports: No Symptoms Musculoskeletal: Reports: No Symptoms Neurological: Reports: No Symptoms - Patient Data Vital Signs - Most Recent: Last Vital Signs Temp 39.1 C H 04/09/18 20:11 Pulse 100 04/09/18 20:11 Resp 14 04/09/18 20:11 BP 128/63 04/09/18 20:11 Pulse Ox 100 04/09/18 20:11 Weight - Most Recent: 77.927 kg Med Orders - Current: Current Medications Acetaminophen (Tylenol) 650 mg PO Q4H PRN PRN Reason: mild pain or fever Benzocaine/Menthol (Dermoplast Pain Relief [place]) 0 gm TOP ASDIRECTED PRN PRN Reason: Perineal Comfort Measure Last Admin: 04/09/18 20:41 Dose: 1 applic Docusate Sodium (Colace) 100 mg PO BID PRN PRN Reason: Constipation Emollient Ointment (Lansinoh Hpa) 0 gm TOP ASDIRECTED PRN PRN Reason: Sore Nipples Ibuprofen (Motrin) 600 mg PO Q6H PRN PRN Reason: Mild pain or fever Last Admin: 04/09/18 21:57 Dose: 600 mg Witch Elaina (Tucks) 1 pad TOP ASDIRECTED PRN PRN Reason: Hemorrhoid pain Last Admin: 04/09/18 20:41 Dose: 1 applic Discontinued Medications Acetaminophen (Tylenol) 975 mg PO NOW ONE Stop: 04/09/18 16:51 Last Admin: 04/09/18 16:56 Dose: 975 mg Diphenhydramine HCl (Benadryl) 25 mg IVPUSH Q6H PRN PRN Reason: Pruritis Last Admin: 04/09/18 15:56 Dose: 25 mg Ephedrine Sulfate (Ephedrine Sulfate) 5 mg IVPUSH ASDIRECTED PRN PRN Reason: Hypotension Last Admin: 04/09/18 11:36 Dose: 5 mg Fentanyl (Sublimaze) 100 mcg EPIDUR Q3H PRN PRN Reason: Pain Last Admin: 04/09/18 09:02 Dose: 100 mcg Fentanyl/Bupivacaine HCl (Fentanyl/Bupivacaine/Ns 2 Mcg-0.125% 100 Ml) 100 ml EPIDUR ASDIRECTED DEO Last Admin: 04/09/18 16:05 Dose: 100 ml Lactated Ringer's (Ringers, Lactated) 1,000 mls @ 40 mls/hr IV ASDIRECTED DEO Last Admin: 04/09/18 10:32 Dose: 40 mls/hr Oxytocin/Lactated Ringer's (Pitocin In Lr 10 Units/1,000 Ml) 10 unit in 1,000 mls @ 12 mls/hr IV TITRATE DEO; Protocol Last Titration: 04/09/18 13:08 Dose: 18 munits/min, 108 mls/hr Oxytocin/Lactated Ringer's (Pitocin In Lr 10 Units/1,000 Ml) 10 unit in 1,000 mls @ 500 mls/hr IV .CONTINUOUS DEO Last Admin: 04/09/18 18:39 Dose: 500 mls/hr Ampicillin Sodium 2 gm/ Sodium (Chloride) 100 mls @ 200 mls/hr IV ONETIME ONE Stop: 04/09/18 17:17 Last Admin: 04/09/18 16:57 Dose: 200 mls/hr Gentamicin Sulfate 150 mg/ (Sodium Chloride) 103.75 mls @ 200 mls/hr IV ONETIME ONE Stop: 04/09/18 17:20 Last Admin: 04/09/18 17:36 Dose: 200 mls/hr Lactated Ringer's (Ringers, Lactated) Confirm Administered Dose 1,000 mls @ as directed .ROUTE .STK-MED ONE Stop: 04/09/18 20:22 Last Admin: 04/10/18 00:36 Dose: Not Given Misoprostol (Cytotec) Confirm Administered Dose 600 mcg .ROUTE .STK-MED ONE Stop: 04/09/18 18:31 Last Admin: 04/09/18 18:38 Dose: 600 mcg Misoprostol (Cytotec) 600 mcg PO ONETIME STA Stop: 04/09/18 18:36 Last Admin: 04/10/18 00:35 Dose: Not Given Nalbuphine HCl (Nubain) 10 mg IVPUSH Q2H PRN PRN Reason: pain Ondansetron HCl (Zofran) 4 mg IVPUSH Q4H PRN PRN Reason: Nausea/Vomiting Last Admin: 04/09/18 21:43 Dose: 4 mg Ondansetron HCl (Zofran) 4 mg IVPUSH ONETIME PRN PRN Reason: Nausea/Vomiting Ondansetron HCl (Zofran) Confirm Administered Dose 4 mg .ROUTE .STK-MED ONE Stop: 04/09/18 21:40 Last Admin: 04/10/18 00:37 Dose: Not Given Sodium Chloride (Saline Flush) 10 ml FLUSH ASDIRECTED PRN PRN Reason: Keep Vein Open - Infant Interaction Disposition, : [place] in Room with Family Interaction: Holding Infant Feeding: Attempted ; Nursed Fair/Poor Support Person: Significant Other - Recovery Exam Fundal Tone: Firm Fundal Level: At Umbilicus Fundal Placement: Midline Lochia Amount: Small, Moderate Lochia Color: Rubra/Red Perineum Description: Intact, Minimal Bruising/Swelling, Edematous Episiotomy/Laceration: None Urinary Elimination: Voided - Exam General: Alert, Oriented, Cooperative GI/Abdominal Exam: Soft, Non-Tender Extremities: Normal Inspection Skin: Warm, Dry, Intact - Problem List & Annotations (1) 40 weeks gestation of SNOMED Code(s): 61169579 Code(s): Z3A.40 - 40 WEEKS GESTATION OF Status: Acute Current Visit: Yes (2) History of shoulder dystocia in prior SNOMED Code(s): 012527161 Code(s): Z87.59 - PERSONAL HISTORY OF COMP OF PREG, CHLDBRTH AND THE PUERP Status: Acute Current Visit: Yes (3) History of maternal cervical laceration, currently SNOMED Code(s): 743499973 Code(s): O09.299 - SUPRVSN OF PREG W POOR REPRODCTV OR OBSTET HISTORY, UNSP TRI Status: Acute Current Visit: Yes (4) Chorioamnionitis SNOMED Code(s): 04442590 Code(s): O41.1290 - CHORIOAMNIONITIS, UNSP TRIMESTER, NOT APPLICABLE OR UNSP Status: Acute Current Visit: Yes Qualifiers: Fetus number: single or unspecified fetus Trimester: third trimester Qualified Code(s): O41.1230 - Chorioamnionitis, third trimester, not applicable or unspecified (5) Vaginal delivery SNOMED Code(s): 116452575 Code(s): O80 - ENCOUNTER FOR FULL-TERM UNCOMPLICATED DELIVERY Status: Acute Current Visit: Yes - Problem List Review Problem List Initiated/Reviewed/Updated: Yes - My Orders Last 24 Hours: My Active Orders 04/09/18 20:11 Activity as Tolerated [RC] PER UNIT ROUTINE Vital Signs [RC] 03,09,15,21 Acetaminophen [Tylenol] 650 mg PO Q4H PRN Benzocaine/Menthol [Dermoplast Pain Relief [place]] See Dose Instructions TOP ASDIRECTED PRN Docusate Sodium [Colace] 100 mg PO BID PRN Ibuprofen [Motrin] 600 mg PO Q6H PRN Lanolin [Lansinoh HPA] See Dose Instructions TOP ASDIRECTED PRN Witch Elaina [Tucks] 1 pad TOP ASDIRECTED PRN Assess Lochia [WOMSER] Per Unit Routine Assess Uterine Involution [WOMSER] Per Unit Routine Breast Pump [WOMSER] Per Unit Routine Heat Therapy [OM.PC] PRN Ice Therapy [OM.PC] Per Unit Routine Perineal Care [OM.PC] Per Unit Routine Peripheral IV Discontinue [OM.PC] Routine Sitz Bath [OM.PC] Per Unit Routine 04/09/18 Dinner Regular Diet [DIET] 04/10/18 20:11 Heat Therapy [OM.PC] PRN - Assessment Assessment:: 27 y/o G3 now P2012 PPD#1 from at 40 1/7 wks - Plan Plan:: * S/p Amp/Gent. Will monitor closely * Encourage breast feeding * Discharge home tomorrow
--- NOTE | 2018-04-10 10:58 | PCM48HPAN ---
Post Anesthesia Note - EVALUATION WITHIN 48HRS OF ANESTHETIC Vital Signs in Normal Range: Yes Patient Participated in Evaluation: Yes Respiratory Function Stable: Yes Airway Patent: Yes Cardiovascular Function Stable: Yes Hydration Status Stable: Yes Pain Control Satisfactory: Yes Nausea and Vomiting Control Satisfactory: Yes Mental Status Recovered: Yes
[2018-04-10] MEDS: Ibuprofen 600 MG Tab PO PRN ×2 (12:21→20:13)
[2018-04-10] MEDS: Docusate Sodium 100 MG Cap PO PRN (20:14)
--- NOTE | 2018-04-11 06:53 | PCM.DCSUM1 ---
Discharge Summary - Discharge Data Discharge Date: 04/11/18 Discharge Disposition: Home, Self-Care 01 Condition: Good - Discharge Diagnosis/Problem(s) (1) 40 weeks gestation of SNOMED Code(s): 03955357 ICD Code: Z3A.40 - 40 WEEKS GESTATION OF Status: Acute Current Visit: Yes (2) History of shoulder dystocia in prior SNOMED Code(s): 983986071 ICD Code: Z87.59 - PERSONAL HISTORY OF COMP OF PREG, CHLDBRTH AND THE PUERP Status: Acute Current Visit: Yes (3) History of maternal cervical laceration, currently SNOMED Code(s): 310543159 ICD Code: O09.299 - SUPRVSN OF PREG W POOR REPRODCTV OR OBSTET HISTORY, UNSP TRI Status: Acute Current Visit: Yes (4) Chorioamnionitis SNOMED Code(s): 70010588 ICD Code: O41.1290 - CHORIOAMNIONITIS, UNSP TRIMESTER, NOT APPLICABLE OR UNSP Status: Acute Current Visit: Yes Qualifiers: Fetus number: single or unspecified fetus Trimester: third trimester Qualified Code(s): O41.1230 - Chorioamnionitis, third trimester, not applicable or unspecified (5) Vaginal delivery SNOMED Code(s): 461237254 ICD Code: O80 - ENCOUNTER FOR FULL-TERM UNCOMPLICATED DELIVERY Status: Acute Current Visit: Yes - Patient Summary/Data Complications: None Consults: None Recommended Follow-up Testing/Procedures: Follow up in 3-6 weeks for check Hospital Course: 27 y/o admitted at 40 0/7 wks for IOL. This was done with pitocin and AROM. She made slow but steady progress to complete dilation. She did develop chorioamnionitis and received Amp/Gent just prior to delivery. She underwent an uncomplicated . See delivery note. she did well and was discharged home on PPD#2 - Patient Instructions Diet: Regular Diet as Tolerated Activity: As Tolerated Activity, Other: Pelvic rest for 6 weeks Driving: May Drive Today Showering/Bathing: May Shower Showering/Bathing, Other: May Bathe Notify Provider of: Fever, Increased Pain, Swelling and Redness, Drainage, Nausea and/or Vomiting - Discharge Plan *PRESCRIPTION DRUG MONITORING PROGRAM REVIEWED*: Not Applicable *COPY OF PRESCRIPTION DRUG MONITORING REPORT IN PATIENT LUCAS: Not Applicable Home Medications: Home Meds Docusate Sodium [Colace] 100 mg PO BID PRN cap 04/10/18 [Rx] Ibuprofen [Motrin] 600 mg PO Q6H PRN tablet 04/10/18 [Rx] Referrals: Nga Kenny MD [Primary Care Provider] - (3-6 weeks for check ) - Discharge Summary/Plan Comment DC Time >30 min.: No - Patient Data Vitals - Most Recent: Last Vital Signs Temp 36.6 C 04/11/18 03:00 Pulse 99 04/11/18 03:00 Resp 16 04/11/18 03:00 BP 102/69 04/11/18 03:00 Pulse Ox 99 04/10/18 21:00 Weight - Most Recent: 77.927 kg I&O - Last 24 hours: Intake & Output 04/10/18 04/10/18 04/11/18 14:59 22:59 06:59 Intake Total 300 Balance 300 Med Orders - Current: Current Medications Acetaminophen (Tylenol) 650 mg PO Q4H PRN PRN Reason: mild pain or fever Last Admin: 04/10/18 15:51 Dose: 650 mg Benzocaine/Menthol (Dermoplast Pain Relief [place]) 0 gm TOP ASDIRECTED PRN PRN Reason: Perineal Comfort Measure Last Admin: 04/09/18 20:41 Dose: 1 applic Docusate Sodium (Colace) 100 mg PO BID PRN PRN Reason: Constipation Last Admin: 04/10/18 20:14 Dose: 100 mg Emollient Ointment (Lansinoh Hpa) 0 gm TOP ASDIRECTED PRN PRN Reason: Sore Nipples Ibuprofen (Motrin) 600 mg PO Q6H PRN PRN Reason: Mild pain or fever Last Admin: 04/10/18 20:13 Dose: 600 mg Witch Elaina (Tucks) 1 pad TOP ASDIRECTED PRN PRN Reason: Hemorrhoid pain Last Admin: 04/09/18 20:41 Dose: 1 applic Discontinued Medications Acetaminophen (Tylenol) 975 mg PO NOW ONE Stop: 04/09/18 16:51 Last Admin: 04/09/18 16:56 Dose: 975 mg Diphenhydramine HCl (Benadryl) 25 mg IVPUSH Q6H PRN PRN Reason: Pruritis Last Admin: 04/09/18 15:56 Dose: 25 mg Ephedrine Sulfate (Ephedrine Sulfate) 5 mg IVPUSH ASDIRECTED PRN PRN Reason: Hypotension Last Admin: 04/09/18 11:36 Dose: 5 mg Fentanyl (Sublimaze) 100 mcg EPIDUR Q3H PRN PRN Reason: Pain Last Admin: 04/09/18 09:02 Dose: 100 mcg Fentanyl/Bupivacaine HCl (Fentanyl/Bupivacaine/Ns 2 Mcg-0.125% 100 Ml) 100 ml EPIDUR ASDIRECTED DEO Last Admin: 04/09/18 16:05 Dose: 100 ml Lactated Ringer's (Ringers, Lactated) 1,000 mls @ 40 mls/hr IV ASDIRECTED DEO Last Admin: 04/09/18 10:32 Dose: 40 mls/hr Oxytocin/Lactated Ringer's (Pitocin In Lr 10 Units/1,000 Ml) 10 unit in 1,000 mls @ 12 mls/hr IV TITRATE DEO; Protocol Last Titration: 04/09/18 13:08 Dose: 18 munits/min, 108 mls/hr Oxytocin/Lactated Ringer's (Pitocin In Lr 10 Units/1,000 Ml) 10 unit in 1,000 mls @ 500 mls/hr IV .CONTINUOUS DEO Last Admin: 04/09/18 18:39 Dose: 500 mls/hr Ampicillin Sodium 2 gm/ Sodium (Chloride) 100 mls @ 200 mls/hr IV ONETIME ONE Stop: 04/09/18 17:17 Last Admin: 04/09/18 16:57 Dose: 200 mls/hr Gentamicin Sulfate 150 mg/ (Sodium Chloride) 103.75 mls @ 200 mls/hr IV ONETIME ONE Stop: 04/09/18 17:20 Last Admin: 04/09/18 17:36 Dose: 200 mls/hr Lactated Ringer's (Ringers, Lactated) Confirm Administered Dose 1,000 mls @ as directed .ROUTE .STK-MED ONE Stop: 04/09/18 20:22 Last Admin: 04/10/18 00:36 Dose: Not Given Misoprostol (Cytotec) Confirm Administered Dose 600 mcg .ROUTE .STK-MED ONE Stop: 04/09/18 18:31 Last Admin: 04/09/18 18:38 Dose: 600 mcg Misoprostol (Cytotec) 600 mcg PO ONETIME STA Stop: 04/09/18 18:36 Last Admin: 04/10/18 00:35 Dose: Not Given Nalbuphine HCl (Nubain) 10 mg IVPUSH Q2H PRN PRN Reason: pain Ondansetron HCl (Zofran) 4 mg IVPUSH Q4H PRN PRN Reason: Nausea/Vomiting Last Admin: 04/09/18 21:43 Dose: 4 mg Ondansetron HCl (Zofran) 4 mg IVPUSH ONETIME PRN PRN Reason: Nausea/Vomiting Ondansetron HCl (Zofran) Confirm Administered Dose 4 mg .ROUTE .[facility] ONE Stop: 04/09/18 21:40 Last Admin: 04/10/18 00:37 Dose: Not Given Sodium Chloride (Saline Flush) 10 ml FLUSH ASDIRECTED PRN PRN Reason: Keep Vein Open
[2018-04-11] MEDS: Docusate Sodium 100 MG Cap PO PRN (12:14)
[2018-04-11] MEDS: Ibuprofen 600 MG Tab PO PRN ×2 (12:14→19:32)
[2018-04-11 12:18] VITALS: BP 107/77
[2018-04-11] MEDS ORDERED: Magnesium Hydroxide 400 MG/5 ML Susp 30 ML Cup PO ONE (19:12)
== END 2018-04-11 19:45 | disposition home or self-care (01) | DRG 807 ==
LOC: JD.OB 18:23 → OBSVTOIN 04-09 18:23 → JD.OB 04-09 18:24
PROVIDERS: ADMIT Obstetrics & Gynecology; ATTEND Obstetrics & Gynecology
PROC: 10907ZC Drainage of Amniotic Fluid, Therapeutic from Products of Conception, Via Natural or Artificial Opening (ICD-10-PCS; principal; 2018-04-09)
PROC: 3E033VJ Introduction of Other Hormone into Peripheral Vein, Percutaneous Approach (ICD-10-PCS; principal; 2018-04-09)
PROC: 10E0XZZ Delivery of Products of Conception, External Approach (ICD-10-PCS; principal; 2018-04-09)
PROC: 6A550ZT Pheresis of Cord Blood Stem Cells, Single (ICD-10-PCS; principal; 2018-04-09)
PROC: 3E0R3BZ Introduction of Anesthetic Agent into Spinal Canal, Percutaneous Approach (ICD-10-PCS; principal; 2018-04-09)
DX: O41.1230 Chorioamnionitis, third trimester, not applicable or unspecified (principal); Z37.0 Single live birth; Z3A.40 40 weeks gestation of pregnancy; Z88.2 Allergy status to sulfonamides; Z87.59 Personal history of other complications of pregnancy, childbirth and the puerperium; Z88.8 Allergy status to other drugs, medicaments and biological substances
CPT/HCPCS: 36415; 51702; 59025; 59409; 85027; 86592; 86850; 86900; 86901; A9270-GY; J0290; J1200; J1580; J2405; J2590; J3010; J3490; J7030; J7120

== ENCOUNTER 2020-01-03 00:01 | Inpatient (IN) | payer MEDICAID ==
[2020-01-03] MEDS ORDERED: Nalbuphine 10 MG/ML Syringe IVPUSH PRN (07:08)
[2020-01-03] MEDS ORDERED: Sodium Chloride 0.9% 10 ML Syringe FLUSH PRN (07:08)
[2020-01-03] MEDS ORDERED: Ondansetron 4 MG/2 ML SDV IVPUSH PRN (07:08)
--- NOTE | 2020-01-03 07:11 | PCM.LDHP ---
L&D History of Present Illness - General Date of Service: 01/03/20 Admit Problem/Dx: Patient Status Order with Admit Dx/Problem 01/03/20 07:08 Patient Status [ADT] Routine Admission Diagnosis/Problem Admission Diagnosis/Problem Normal in third trimester Source of Information: Patient History Limitations: Reports: No Limitations - History of Present Illness Introduction:: Patient is a 29-year-old 012 at 39-0/7 weeks gestation who presents for induction of labor. Doing well today. No specific concerns or complaints. No significant contractions - Related Data Allergies/Adverse Reactions: Allergies Allergy/AdvReac Type Severity Reaction Status Date / Time doxycycline Allergy Intermediate Anaphylactic Verified 04/08/18 21:57 Shock Sulfa (Sulfonamide Allergy Mild Hives Verified 04/08/18 21:57 Antibiotics) Home Medications: Home Meds Sertraline [Zoloft] 50 mg PO DAILY 01/03/20 [History] Past Medical History [employer] History: Reports: , Spontaneous : 4 Para: 2 LMP (Approximate): Other OB/BYN History: Hx of shoulder dystocia / cervical laceration with first delivery Neurological History: Reports: Migraines Psychiatric History: Reports: ADHD Hematologic History: Reports: Blood Transfusion(s) - Infectious Disease History Infectious Disease History: Reports: Chicken Pox - Past Surgical History Musculoskeletal Surgical History: Reports: Other (See Below) Other Musculoskeletal Surgeries/Procedures:: ankle surgery Social & Family History - Family History Family Medical History: Noncontributory - Tobacco Use Smoking Status *Q: Never Smoker - Caffeine Use Caffeine Use: Reports: Soda - Alcohol Use Alcohol Use History: No - Recreational Drug Use Recreational Drug Use: No - Living Situation & Occupation Living situation: Reports: Single, with Family (Daughter) 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) H&P Review of Systems - Review of Systems: Review Of Systems: See Below General: Reports: No Symptoms Pulmonary: Reports: No Symptoms Cardiovascular: Reports: No Symptoms Gastrointestinal: Reports: No Symptoms Genitourinary: Reports: No Symptoms Musculoskeletal: Reports: No Symptoms Psychiatric: Reports: No Symptoms Neurological: Reports: No Symptoms L&D Exam - Exam Exam: See Below - OB Specific Contraction Intensity: Irritability Movement: Active Heart Tones: Present Heart Tones per Min: 135 Heart Rate (FHR) Variability: Moderate (6-25 bmp) Presentation: Vertex - Shin Score Shin Score Cervix Position: Posterior Shin Score Consistency: Soft Shin Score Effacement: 51-70% Shin Score Dilation: 1-2 cm Shin Score 's Station: -2 Shin Score Total: 6 - Exam General: Alert, Oriented, Cooperative Lungs: Clear to Auscultation, Normal Respiratory Effort Cardiovascular: Regular Rate, Regular Rhythm GI/Abdominal Exam: Soft, Non-Tender Genitourinary: Normal external exam Back Exam: Normal Inspection Extremities: Normal Inspection Skin: Warm, Dry, Intact - Patient Data Result Diagrams: 01/03/20 07:40 - Problem List (1) 39 weeks gestation of SNOMED Code(s): 58527651 ICD Code: Z3A.39 - 39 WEEKS GESTATION OF Status: Acute Current Visit: Yes (2) History of maternal cervical laceration, currently SNOMED Code(s): 761465298, 271617984 ICD Code: O09.299 - SUPRVSN OF PREG W POOR REPRODCTV OR OBSTET HISTORY, UNSP TRI Status: Acute Current Visit: No (3) History of shoulder dystocia in prior SNOMED Code(s): 399176234, 271347680 ICD Code: Z87.59 - PERSONAL HISTORY OF COMP OF PREG, CHLDBRTH AND THE PUERP Status: Acute Current Visit: No Problem List Initiated/Reviewed/Updated: Yes Orders Last 24hrs: Active Orders 24 hr Category Date Time Status Patient Status [ADT] Routine ADT 01/03/20 07:08 Ordered Activity as Tolerated [RC] PFP Care 01/03/20 07:08 Ordered Communication Order [RC] ASDIRECTED Care 01/03/20 07:08 Ordered Communication Order [RC] ASDIRECTED Care 01/03/20 07:08 Ordered Communication Order [RC] ASDIRECTED Care 01/03/20 07:08 Ordered Non Stress Test [RC] PER UNIT ROUTINE Care 01/03/20 07:08 Ordered Notify Provider [RC] ASDIRECTED Care 01/03/20 07:08 Ordered Notify Provider [RC] PRN Care 01/03/20 07:08 Ordered Peripheral IV Care [RC] . DIRECTED Care 01/03/20 07:08 Ordered Vaginal Exam [RC] ASDIRECTED Care 01/03/20 07:08 Ordered Vital Signs [RC] ASDIRECTED Care 01/03/20 07:08 Ordered Regular Diet [DIET] Diet 01/03/20 Breakfast Ordered CBC W/O DIFF,HEMOGRAM [HEME] Routine Lab 01/03/20 07:08 Ordered RAPID PLASMA REAGIN,RPR [CHEM] Routine Lab 01/03/20 07:08 Ordered TYPE AND SCREEN [BBK] Routine Lab 01/03/20 07:08 Ordered Lactated Ringers [Ringers, Lactated] 1,000 ml Med 01/03/20 07:15 Ordered IV ASDIRECTED Nalbuphine [Nubain] Med 01/03/20 07:08 Ordered 10 mg IVPUSH Q2H PRN Ondansetron [Zofran] Med 01/03/20 07:08 Ordered 4 mg IVPUSH Q4H PRN Oxytocin/Lactated Ringers [Pitocin in LR 10 Units/1,000 Med 01/03/20 07:15 Ordered ML] 10 unit in 1,000 ml IV .CONTINUOUS Oxytocin/Lactated Ringers [Pitocin in LR 10 Units/1,000 Med 01/03/20 07:15 Ordered ML] 10 unit in 1,000 ml IV TITRATE Sodium Chloride 0.9% [Saline Flush] Med 01/03/20 07:08 Ordered 10 ml FLUSH ASDIRECTED PRN Electronic Heart Tones Internal [WOMSER] Per Unit Oth 01/03/20 07:08 Ordered Routine Peripheral IV Insertion Adult [OM.PC] Routine Oth 01/03/20 07:08 Ordered Resuscitation Status Routine Resus Stat 01/03/20 07:08 Ordered Assessment/Plan Comment:: * Labs to be done * GBS negative, no need for antibiotics * Pitocin for IOL with AROM when able * Pain management per patient preference * Anticipate
[2020-01-03] MEDS ORDERED: Oxytocin/Lactated Ringers 10 UNIT/1,000 ML BAG IV SCH ×2 (07:15)
[2020-01-03] MEDS: Lactated Ringers 1,000 ML IV SCH ×4 (08:33→20:34)
--- NOTE | 2020-01-03 13:33 | PCM.PREANE ---
Preanesthetic Assessment - Anesthesia/Transfusion/Family Hx Anesthesia History: Prior Anesthesia Without Reaction Transfusion History: Prior Transfusion Without Reaction - Review of Systems General: No Symptoms Pulmonary: No Symptoms Cardiovascular: No Symptoms Gastrointestinal: No Symptoms Neurological: No Symptoms Other: Reports: None - Physical Assessment Vital Signs: Last Vital Signs Temp 98.9 F 01/03/20 07:40 Pulse 107 H 01/03/20 07:40 Resp 18 01/03/20 07:40 BP 123/77 01/03/20 07:40 Pulse Ox 99 01/03/20 07:40 Height: 1.6 m Weight: 86.183 kg ASA Class: 2 Mental Status: Alert & Oriented x3 Airway Class: Mallampati = 3 Dentition: Reports: Normal Dentition Thyro-Mental Finger Breadths: 3 Mouth Opening Finger Breadths: 3 ROM/Head Extension: Full Lungs: Clear to Auscultation, Normal Respiratory Effort Cardiovascular: Regular Rate, Regular Rhythm - Lab Values: Laboratory Last Values WBC 7.87 K/mm3 (3.98-10.04) 01/03/20 07:40 RBC 3.46 M/mm3 (3.98-5.22) L 01/03/20 07:40 Hgb 9.9 gm/dl (11.2-15.7) L 01/03/20 07:40 Hct 30.0 % (34.1-44.9) L 01/03/20 07:40 MCV 86.7 fl (79.4-94.8) 01/03/20 07:40 MCH 28.6 pg (25.6-32.2) 01/03/20 07:40 MCHC 33.0 g/dl (32.2-35.5) 01/03/20 07:40 RDW Std Deviation 39.5 fL (36.4-46.3) 01/03/20 07:40 Plt Count 296 K/mm3 (182-369) 01/03/20 07:40 MPV 9.2 fl (9.4-12.3) L 01/03/20 07:40 SARS-CoV-2 RNA (RT-PCR) Negative (NEGATIVE) 01/03/20 10:00 Blood Type A POSITIVE 01/03/20 07:40 Gel Antibody Screen Negative 01/03/20 07:40 - Allergies Allergies/Adverse Reactions: Allergies Allergy/AdvReac Type Severity Reaction Status Date / Time doxycycline Allergy Intermediate Anaphylactic Verified 04/08/18 21:57 Shock Sulfa (Sulfonamide Allergy Mild Hives Verified 04/08/18 21:57 Antibiotics) - Acknowledgements Anesthesia Type Planned: Epidural Pt an Appropriate Candidate for the Planned Anesthesia: Yes Alternatives and Risks of Anesthesia Discussed w Pt/Guardian: Yes Pt/Guardian Understands and Agrees with Anesthesia Plan: Yes PreAnesthesia Questionnaire - Past Health History Medical/Surgical History: Denies Medical/Surgical History HEENT History: Reports: Other (See Below) Other HEENT History: Migraines 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: , 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 Other OB/BYN History: Hx of shoulder dystocia / cervical laceration with first delivery Neurological History: Reports: Migraines Psychiatric History: Reports: ADHD Hematologic History: Reports: Blood Transfusion(s) - Infectious Disease History Infectious Disease History: Reports: Chicken Pox - Past Surgical History Musculoskeletal Surgical History: Reports: Other (See Below) Other Musculoskeletal Surgeries/Procedures:: ankle surgery - SUBSTANCE USE Smoking Status *Q: Never Smoker Recreational Drug Use History: No - HOME MEDS Home Medications: Home Meds Sertraline [Zoloft] 50 mg PO DAILY 01/03/20 [History] - CURRENT (IN HOUSE) MEDS Current Meds: Current Medications Oxytocin/Lactated Ringer's (Pitocin In Lr 10 Units/1,000 Ml) 10 unit in 1,000 mls @ 12 mls/hr IV TITRATE DEO; Protocol Last Titration: 01/03/20 13:09 Dose: 10 munits/min, 60 mls/hr Documented by: Oxytocin/Lactated Ringer's (Pitocin In Lr 10 Units/1,000 Ml) 10 unit in 1,000 mls @ 500 mls/hr IV .CONTINUOUS DEO Lactated Ringer's (Ringers, Lactated) 1,000 mls @ 40 mls/hr IV ASDIRECTED DEO Last Admin: 01/03/20 12:29 Dose: 40 mls/hr Documented by: Nalbuphine HCl (Nubain) 10 mg IVPUSH Q2H PRN PRN Reason: Pain Ondansetron HCl (Zofran) 4 mg IVPUSH Q4H PRN PRN Reason: Nausea/Vomiting Sodium Chloride (Saline Flush) 10 ml FLUSH ASDIRECTED PRN PRN Reason: Keep Vein Open
[2020-01-03] MEDS ORDERED: fentaNYL 100 MCG/2 ML SDV EPIDUR PRN (13:37)
[2020-01-03] MEDS ORDERED: ePHEDrine 50 MG/ML SDV IVPUSH PRN (13:37)
[2020-01-03] MEDS ORDERED: diphenhydrAMINE 50 MG/ML SDV IVPUSH PRN (13:37)
[2020-01-03] MEDS: Bupivacaine/fentaNYL/NS 100 ML Bag EPIDUR PRN ×2 (13:59→23:33)
[2020-01-03] MEDS ORDERED: Oxytocin/Lactated Ringers 20 UNIT/1,000 ML BAG IV SCH (20:49)
[2020-01-04] MEDS ORDERED: Lidocaine 1.5% with EPINEPHrine 1:200,000 5 ML Amp ONE
--- NOTE | 2020-01-04 00:19 | PCM.DEL ---
L & D Note - General Info Date of Service: 01/04/20 - Delivery Note Labor: Induced by ARM, Induced by Oxytocin Delivery Outcome: Livebirth Infant Delivery Method: Spontaneous Vaginal Delivery-Single Infant Delivery Mode: Spontaneous Presentation: Right Occiput Anterior (DIDI) Nuchal Cord: None Anesthesia Type: Epidural Amniotic Fluid Description: Clear Episiotomy Type: None Laceration: None Placenta: Intact, Spontaneous Cord: 3 Vessels Estimated Blood Loss: 300 Dennis: Bulb Syringe, Stimulated, Warmed, Britt Used, Warmer Used Delivery Comments (Free Text/Narrative):: Patient found to be complete and began pushing. With maternal pushing effort head delivered from DIDI presentation. No nuchal cord present. With gentle downward traction shoulders and body delivered. placed on maternal abdomen. Cord clamped and cut. Cord blood obtained. Placenta allowed time to separate and expelled intact. Inspection of the perineum showed no lacerations - General Info Date of Service: 01/04/20 - Patient Data Vitals - Most Recent: Last Vital Signs Temp 37.2 C 01/03/20 07:40 Pulse 107 H 01/03/20 07:40 Resp 18 01/03/20 07:40 BP 123/77 01/03/20 07:40 Pulse Ox 99 01/03/20 07:40 Weight - Most Recent: 86.183 kg I&O - Last 24 Hours: Intake & Output 01/03/20 01/03/20 01/04/20 14:59 22:59 06:59 Intake Total 1000 Output Total 1550 Balance 1000 -1550 - Problem List & Annotations (1) 39 weeks gestation of SNOMED Code(s): 72879459 Code(s): Z3A.39 - 39 WEEKS GESTATION OF Status: Acute Current Visit: Yes (2) History of maternal cervical laceration, currently SNOMED Code(s): 296340801, 274375900 Code(s): O09.299 - SUPRVSN OF PREG W POOR REPRODCTV OR OBSTET HISTORY, UNSP TRI Status: Acute Current Visit: No (3) History of shoulder dystocia in prior SNOMED Code(s): 807087900, 045792732 Code(s): Z87.59 - PERSONAL HISTORY OF COMP OF PREG, CHLDBRTH AND THE PUERP Status: Acute Current Visit: No (4) Vaginal delivery SNOMED Code(s): 393884872 Code(s): O80 - ENCOUNTER FOR FULL-TERM UNCOMPLICATED DELIVERY Status: Acute Current Visit: No - Problem List Review Problem List Initiated/Reviewed/Updated: Yes - My Orders Last 24 Hours: My Active Orders 01/03/20 Breakfast Regular Diet [DIET] 01/03/20 07:08 Patient Status [ADT] Routine Activity as Tolerated [RC] PFP Communication Order [RC] ASDIRECTED Communication Order [RC] ASDIRECTED Communication Order [RC] ASDIRECTED Notify Provider [RC] ASDIRECTED Notify Provider [RC] PRN Nalbuphine [Nubain] 10 mg IVPUSH Q2H PRN Ondansetron [Zofran] 4 mg IVPUSH Q4H PRN Sodium Chloride 0.9% [Saline Flush] 10 ml FLUSH ASDIRECTED PRN Electronic Heart Tones Internal [WOMSER] Per Unit Routine Peripheral IV Insertion Adult [OM.PC] Routine Resuscitation Status Routine 01/03/20 07:15 Lactated Ringers [Ringers, Lactated] 1,000 ml IV ASDIRECTED Oxytocin/Lactated Ringers [Pitocin in LR 10 Units/1,000 ML] 10 unit in 1,000 ml IV .CONTINUOUS Oxytocin/Lactated Ringers [Pitocin in LR 10 Units/1,000 ML] 10 unit in 1,000 ml IV TITRATE 01/03/20 20:48 Communication Order [RC] ASDIRECTED Notify Provider [RC] ASDIRECTED 01/03/20 20:49 Oxytocin/Lactated Ringers [Pitocin in LR 20 Units/1,000 ML] 20 unit in 1,000 ml IV TITRATE 01/04/20 00:12 Patient Status Manage Transfer [TRANSFER] Routine - Assessment Assessment:: PPD#0 - Plan Plan:: * Routine cares * Breast feeding * Discharge home in 1-2 days
[2020-01-04] MEDS ORDERED: Benzocaine/Menthol 20%-0.5% Spray 56 GM Canister TOP PRN (01:08)
[2020-01-04] MEDS ORDERED: Docusate Sodium 100 MG Cap PO PRN (01:08)
[2020-01-04] MEDS ORDERED: Witch Hazel Medicated Pads 40/Jar TOP PRN (01:08)
[2020-01-04] MEDS: Ibuprofen 600 MG Tab PO PRN ×3 (02:33→20:14)
[2020-01-04] MEDS: Acetaminophen 325 MG Tab PO PRN ×2 (07:49→15:23)
--- NOTE | 2020-01-04 08:04 | PCM48HPAN ---
Post Anesthesia Note - EVALUATION WITHIN 48HRS OF ANESTHETIC Vital Signs in Normal Range: Yes Patient Participated in Evaluation: Yes Respiratory Function Stable: Yes Airway Patent: Yes Cardiovascular Function Stable: Yes Hydration Status Stable: Yes Pain Control Satisfactory: Yes Nausea and Vomiting Control Satisfactory: Yes Mental Status Recovered: Yes Vital Signs: Last Vital Signs Temp 99.3 F 01/04/20 02:28 Pulse 85 01/04/20 02:28 Resp 14 01/04/20 02:28 BP 134/72 01/04/20 02:28 Pulse Ox 95 01/04/20 02:28
[2020-01-05] MEDS: Ibuprofen 600 MG Tab PO PRN ×2 (03:27→11:52)
[2020-01-05 09:48] VITALS: BP 122/80; PULSE 66
--- NOTE | 2020-01-05 10:21 | PCM.SN.2 ---
- Free Text/Narrative Note: Post Progress Note PPD #1 Subjective: Doing well overall. Ambulating without difficulty. Lochia minimal. Voiding without difficulty. Tolerating regular diet without nausea or vomiting. Pain controlled with oral medications. Breast-feeding with minimal difficulty. Objective: Vitals: Vital Signs - 24 hr 01/04/20 01/04/20 01/05/20 15:20 20:15 03:31 Temperature 36.7 C 36.4 C Pulse, 80 71 85 Peripheral Respiratory 14 15 15 Rate Blood Pressure 129/80 129/88 127/75 O2 Sat by Pulse 95 96 95 Oximetry 01/05/20 09:09 Temperature 36.7 C Pulse, 66 Peripheral Respiratory 16 Rate Blood Pressure 122/80 O2 Sat by Pulse 96 Oximetry Physical Exam General: Alert and oriented, no acute distress Lungs: Clear to auscultation bilaterally Heart: Regular rate and rhythm Abdomen: Soft, minimal appropriate tenderness, non-distended, fundus midline, nontender, and at the umbilicus Extremities: No edema ASSESSMENT: 29-year-old female -0-1-3 s/p normal vaginal delivery PPD #1, complicated by history of shoulder dystocia and cervical laceration in a previous PLAN: Doing well Breast-feeding with minimal difficulty. Assist as needed Lochia minimal. Continue to monitor for appropriate lochia. Continue routine care Anticipate discharge home today Bong Ospina MD 10:20 AM 01/05/2020
--- NOTE | 2020-01-05 10:25 | PCM.DCSUM1 ---
Discharge Summary - Hospital Course Free Text/Narrative:: - General Info Date of Service: 01/04/20 - Delivery Note Labor: Induced by ARM, Induced by Oxytocin Delivery Outcome: Livebirth Delivery Method: Spontaneous Vaginal Delivery-Single Infant Delivery Mode: Spontaneous Presentation: Right Occiput Anterior (DIDI) Nuchal Cord: None Anesthesia Type: Epidural Amniotic Fluid Description: Clear Episiotomy Type: None Laceration: None Placenta: Intact, Spontaneous Cord: 3 Vessels Estimated Blood Loss: 300 [place]: Bulb Syringe, Stimulated, Warmed, [place] Used, Warmer Used Delivery Comments (Free Text/Narrative):: Patient found to be complete and began pushing. With maternal pushing effort head delivered from DIDI presentation. No nuchal cord present. With gentle downward traction shoulders and body delivered. Infant placed on maternal abdomen. Cord clamped and cut. Cord blood obtained. Placenta allowed time to separate and expelled intact. Inspection of the perineum showed no lacerations HPI Initial Comments: - General Info Date of Service: 01/04/20 - Delivery Note Labor: Induced by ARM, Induced by Oxytocin Delivery Outcome: Livebirth Infant Delivery Method: Spontaneous Vaginal Delivery-Single Infant Delivery Mode: Spontaneous Presentation: Right Occiput Anterior (DIDI) Nuchal Cord: None Anesthesia Type: Epidural Amniotic Fluid Description: Clear Episiotomy Type: None Laceration: None Placenta: Intact, Spontaneous Cord: 3 Vessels Estimated Blood Loss: 300 : Bulb Syringe, Stimulated, Warmed, [place] Used, Warmer Used Delivery Comments (Free Text/Narrative):: Patient found to be complete and began pushing. With maternal pushing effort head delivered from DIDI presentation. No nuchal cord present. With gentle downward traction shoulders and body delivered. Infant placed on maternal abdomen. Cord clamped and cut. Cord blood obtained. Placenta allowed time to separate and expelled intact. Inspection of the perineum showed no lacerations Brief History: - General Info. Date of Service: 01/04/20. - Delivery Note. Labor: Induced by ARM, Induced by Oxytocin. Delivery Outcome: Livebirth. Delivery Method: Spontaneous Vaginal Delivery-Single. Infant Delivery Mode: Spontaneous. Presentation: Right Occiput Anterior (DIDI). Nuchal Cord: None. Anesthesia Type: Epidural. Amniotic Fluid Description: Clear. Episiotomy Type: None. Laceration: None. Placenta: Intact, Spontaneous. Cord: 3 Vessels. Estimated Blood Loss: 300. [place]: Bulb Syringe, Stimulated, Warmed, [place] Used, Warmer Used. Delivery Comments (Free Text/Narrative):: Patient found to be complete and began pushing. With maternal pushing effort head delivered from DIDI presentation. No nuchal cord present. With gentle downward traction shoulders and body delivered. Infant placed on maternal abdomen. Cord clamped and cut. Cord blood obtained. Placenta allowed time to separate and expelled intact. Inspection of the perineum showed no lacerations Diagnosis: Stroke: No - Discharge Data Discharge Date: 01/05/20 Discharge Disposition: Home, Self-Care 01 Condition: Good - Referral to Home Health Primary Care Physician: Nga Kenny MD - Discharge Diagnosis/Problem(s) (1) 39 weeks gestation of SNOMED Code(s): 42785102 ICD Code: Z3A.39 - 39 WEEKS GESTATION OF Status: Acute Current Visit: Yes (2) Vaginal delivery SNOMED Code(s): 819026456 ICD Code: O80 - ENCOUNTER FOR FULL-TERM UNCOMPLICATED DELIVERY Status: Acute Current Visit: No - Patient Summary/Data Complications: None Consults: None Hospital Course: Radha Valero was admitted for elective induction of labor. On admission her cervix was dilated to 1-2 cm. She was GBS negative. She was given pitocin for augmentation. She was given an epidural for anesthesia. She had artificial rupture of membranes with clear fluid. She progressed to complete and began pushing. On 01/04/2020 she had a normal vaginal delivery of a live female infant at 00:01. Apgars of 8 and 9. Weight of 3550 g (7 pounds 13.2 ounces). Her course was uneventful. Her pain was well controlled and she had minimal lochia. She was ambulating, tolerating a regular diet and voiding normally. She was breast-feeding with minimal difficulty. She was afebrile and her hematocrit was 30.0 on admission. She desired to be discharged home on the morning of PPD #1. Her blood type is A+. - Patient Instructions Diet: Regular Diet as Tolerated Activity: Apply Ice, As Tolerated Activity, Other: Nothing in the vagina for 6 weeks Driving: May Drive Today Showering/Bathing: May Shower Notify Provider of: Fever, Increased Pain, Swelling and Redness, Drainage, Naus ea and/or Vomiting Other/Special Instructions: Please contact your physician's office if you have heavy vaginal bleeding enough to soak a pad in less than an hour for several hours. Monitor for any signs of an infection in the breasts with severe pain or redness of the breast. - Discharge Plan *PRESCRIPTION DRUG MONITORING PROGRAM REVIEWED*: Not Applicable *COPY OF PRESCRIPTION DRUG MONITORING REPORT IN PATIENT LUCAS: Not Applicable Home Medications: Home Meds Sertraline [Zoloft] 50 mg PO DAILY 01/03/20 [History] Acetaminophen [Tylenol] 650 mg PO Q6H PRN tablet 01/05/20 [Rx] Benzocaine/Menthol [Dermoplast Pain Relief [place]] 1 spray TOP ASDIRECTED PRN canister 01/05/20 [Rx] Docusate Sodium [Colace] 100 mg PO BID PRN cap 01/05/20 [Rx] Ibuprofen [Motrin] 600 mg PO Q6H PRN tablet 01/05/20 [Rx] witch Cj [Tucks] 1 pad TOP ASDIRECTED PRN pad 01/05/20 [Rx] Patient Handouts: Care After Vaginal Delivery Referrals: Nga Kenny MD [Primary Care Provider] - (Follow-up in 3 to 6 weeks for routine visit or earlier as needed.) - Discharge Summary/Plan Comment DC Time >30 min.: No - Patient Data Vitals - Most Recent: Last Vital Signs Temp 36.7 C 01/05/20 09:09 Pulse 66 01/05/20 09:09 Resp 16 01/05/20 09:09 BP 122/80 01/05/20 09:09 Pulse Ox 96 01/05/20 09:09 Weight - Most Recent: 86.183 kg I&O - Last 24 hours: Intake & Output 01/04/20 01/05/20 01/05/20 22:59 06:59 14:59 Intake Total 620 Balance 620 Med Orders - Current: Current Medications Acetaminophen (Tylenol) 650 mg PO Q4H PRN PRN Reason: mild pain or fever Last Admin: 01/04/20 15:23 Dose: 650 mg Documented by: Benzocaine/Menthol (Dermoplast Pain Relief [place]) 0 gm TOP ASDIRECTED PRN PRN Reason: Perineal Comfort Measure Docusate Sodium (Colace) 100 mg PO BID PRN PRN Reason: Constipation Ibuprofen (Motrin) 600 mg PO Q6H PRN PRN Reason: Mild pain or fever Last Admin: 01/05/20 03:27 Dose: 600 mg Documented by: Ngozi Delaney ([place]) 1 pad TOP ASDIRECTED PRN PRN Reason: Perineal Comfort Measure Discontinued Medications Diphenhydramine HCl (Benadryl) 25 mg IVPUSH Q6H PRN PRN Reason: pruritis Last Admin: 01/03/20 20:32 Dose: 25 mg Documented by: Ephedrine Sulfate (Ephedrine Sulfate) 5 mg IVPUSH ASDIRECTED PRN PRN Reason: Hypotension Fentanyl (Sublimaze) 100 mcg EPIDUR Q3H PRN PRN Reason: Pain Last Admin: 01/03/20 13:59 Dose: 100 mcg Documented by: Fentanyl/Bupivacaine HCl (Fentanyl/Bupivacaine/Ns 2 Mcg-0.125% 100 Ml) 100 ml EPIDUR ASDIRECTED PRN PRN Reason: Pain Last Admin: 01/03/20 23:33 Dose: 100 ml Documented by: Oxytocin/Lactated Ringer's (Pitocin In Lr 10 Units/1,000 Ml) 10 unit in 1,000 mls @ 12 mls/hr IV TITRATE DEO; Protocol Last Titration: 01/03/20 22:31 Dose: 26 munits/min, 156 mls/hr Documented by: Oxytocin/Lactated Ringer's (Pitocin In Lr 10 Units/1,000 Ml) 10 unit in 1,000 mls @ 500 mls/hr IV .CONTINUOUS DEO Lactated Ringer's (Ringers, Lactated) 1,000 mls @ 40 mls/hr IV ASDIRECTED DEO Last Admin: 01/03/20 20:34 Dose: 40 mls/hr Documented by: Oxytocin/Lactated Ringer's (Pitocin In Lr 20 Units/1,000 Ml) 20 unit in 1,000 mls @ 66 mls/hr IV TITRATE DEO; Protocol Last Admin: 01/03/20 22:59 Dose: 66 mls/hr Documented by: Lidocaine/Epinephrine (Xylocaine-Mpf 1.5% W/Epinephrine 1:200,000) 5 ml .ROUTE .[facility] ONE Stop: 07/02/20 00:01 Nalbuphine HCl (Nubain) 10 mg IVPUSH Q2H PRN PRN Reason: Pain Ondansetron HCl (Zofran) 4 mg IVPUSH Q4H PRN PRN Reason: Nausea/Vomiting Sodium Chloride (Saline Flush) 10 ml FLUSH ASDIRECTED PRN PRN Reason: Keep Vein Open
== END 2020-01-05 14:30 | disposition home or self-care (01) | DRG 807 ==
LOC: JD.OB 00:01 → OBSVTOIN 01-04 00:01 → JD.OB 01-04 00:02
PROVIDERS: ADMIT Obstetrics & Gynecology; ATTEND Obstetrics & Gynecology
PROC: 10E0XZZ Delivery of Products of Conception, External Approach (ICD-10-PCS; principal; 2020-01-04)
PROC: 10907ZC Drainage of Amniotic Fluid, Therapeutic from Products of Conception, Via Natural or Artificial Opening (ICD-10-PCS; 2020-01-04)
PROC: 3E0R3BZ Introduction of Anesthetic Agent into Spinal Canal, Percutaneous Approach (ICD-10-PCS; 2020-01-04)
DX: O99.344 Other mental disorders complicating childbirth (principal); Z37.0 Single live birth; F90.9 Attention-deficit hyperactivity disorder, unspecified type; Z88.2 Allergy status to sulfonamides; Z88.8 Allergy status to other drugs, medicaments and biological substances; Z11.59 Encounter for screening for other viral diseases; Z3A.39 39 weeks gestation of pregnancy
CPT/HCPCS: 36415; 51702; 59025; 59409; 85027; 86592; 86850; 86900; 86901; A9270-GY; J1200; J2590; J3010; J7120; U0002